=== PATIENT | female | born 1980 | race Caucasian/White ===

== ENCOUNTER → 2016-06-23 | Outpatient (CLI) | payer OTHER ==
[~2016-06-23] MED LIST: ALBU17IN INH; ALBU17IN2 INH; AMBI10TA PO; APAP325T PO; ASPI81TA85 PO; BACL10TA2 PO; CLON1TAB PO; CYCL10TA PO; DULO30CA PO; GABA-283 PO; GABA300C3 PO; GABA600T PO; HYDR-3716 PO; HYDR-4274 PO; HYDR1TAB97 PO; HYDR25T PO; IBUP60TA PO; LAMI1TAB7 PO; LATU20TA PO; NAPR500T2 PO; NEUR300C PO; NORT25CA2 PO; RIZA10TA2 PO; ROBA750T4 PO; SERT-138 PO; SING10TA32 PO; SUMA50TA2 PO; TOPA25TA10 PO; TRAM50TA2 PO; TRAZ50TA4 PO; ULTR50TA PO; VICO5TAB16 PO; ZANA4TAB PO; ZOLO50TA PO
--- NOTE | 2016-06-23 14:25 | REP ---
BILATERAL MAMMOGRAM WITH DIAGNOSTIC MAMMOGRAM OF THE LEFT BREAST AND LEFT BREAST ULTRASOUND: Bilateral mammography performed in the MLO and CC projections. There are no prior studies. Reportedly, there is a palpable abnormality in the upper outer quadrant of the left breast. That area is marked on the skin with a triangular marker. Breast parenchyma is predominately fatty replaced. There is no evidence of mass. No clustered microcalcifications are seen. Real-time sonographic evaluation of the upper outer quadrant of the left breast is performed at the site of the reported palpable abnormality and demonstrates no cystic or solid mass. IMPRESSION: ACR 2 benign. No mass or clustered microcalcifications. There is no mammographic or sonographic evidence of a mass at the site of the reported palpable abnormality in the upper outer quadrant of the left breast. A negative mammogram and ultrasound should not deter biopsy if there is a clinically suspicious palpable mass present. Clinical correlation and followup recommended. BI-RADS/ACR category 2 mammogram. Benign finding(s). Routine annual screening mammography (for women over age 40). This mammogram was interpreted with the aid of an FDA-approved computer-aided detection system. A. Negative x-ray reports should not delay biopsy if a dominant or clinically suspicious mass is present. B. Four to eight percent of cancers are not identified by x-ray. C. Adenosis and dense breasts may obscure an underlying neoplasm. The patient states she/he had a clinical breast exam in May 2016. The patient letter being requested is M2. Signed by Simeon Cee MD 06/23/2016 05:22 P
== END ==
LOC: M RAD 12:09
PROVIDERS: ATTEND Physician Assistant Medical
DX: R91.8 Other nonspecific abnormal finding of lung field (principal)

== ENCOUNTER 2016-06-25 10:32 | Emergency (ER) | payer OTHER ==
[2016-06-25] MEDS ORDERED: IBUPROFEN 800 MG TAB As Ordered ONE (10:58)
--- NOTE | 2016-06-25 12:22 | REP ---
LUMBOSACRAL SPINE: Five views of the lumbosacral spine are performed. There is no compression fracture or malalignment. There is no spondylolysis or spondylolisthesis. There is mild spurring at L1 and L2 with mild disc space narrowing and subchondral sclerosis at that level. There is mild narrowing and sclerosis at L5-S1. There is sclerosis at the posterior facets. The posterior elements are intact. IMPRESSION: Mild degenerative changes without evidence of acute fracture or dislocation. Signed by Simeon Cee MD 06/25/2016 01:30 P
--- NOTE | 2016-06-25 12:22 | REP ---
PELVIS AND RIGHT HIP: AP view of the pelvis and AP and frogleg views of the right hip are performed. There is no evidence of acute fracture or dislocation. There are mild bilateral degenerative changes at the hip joints with mild joint space narrowing, subchondral sclerosis and spurring bilaterally. IMPRESSION: Mild degenerative changes. No fracture or dislocation. Signed by Simeon Cee MD 06/25/2016 01:30 P
--- NOTE | 2016-06-25 12:31 | EDDOCDS ---
Physician Documentation [facility] Name: Janna Martinez Age: 35 yrs Sex: Female : 1980 Arrival Date: 06/25/2016 Time: 10:32 Bed Private MD: Radha Pendleton C Disposition: 06/25/16 12:15 Discharged to Home/Self Care. Impression: Fall due to ice and snow, Pain in right hip, Low back pain - CHRONIC. - Condition is Stable. - Discharge Instructions: Back Pain, Adult, Musculoskeletal Pain. - Prescriptions for Naprosyn 500 mg Oral Tablet - take 1 tablet by ORAL route every 12 hours As needed take with food; 30 tablet. - Medication Reconciliation, Local Pharmacy Hours form. - Follow up: Emergency Department; When: As needed; Reason: Worsening of conditions. Follow up: Private Physician; When: 2 - 3 days; Reason: Wound/Symptom Recheck, Recheck today's complaints, Continuance of care. - Problem is new. - Symptoms are unchanged. - Notes: THERE WAS NO FRACTURE ON YOUR XRAYS TODAY. PLEASE FOLLOW UP WITH YOUR PRIMARY CARE PROVIDER IN THE NEXT FEW DAYS TO RECHECK YOUR SYMPTOMS. Historical: - Allergies: a migraine medicine that was given IV; Bees (Anaphylaxis); mangos (throat closes); SULFA (SULFONAMIDES) (Rash); - Home Meds: 1. albuterol sulfate 90 mcg/actuation Inhl HFAA 2 puffs every 4 hours as needed (Last dose: 06/24/2016 00:00) 2. Atarax Oral 25 mg nightly (Last dose: 06/25/2016 07:00) 3. baclofen 10 mg Oral tab 1 tab 3 times per day (Last dose: 06/25/2016 07:00) 4. hydrocodone-acetaminophen 7.5-325 mg Oral tab 1 tab every 6 hours as needed (Last dose: 06/24/2016 00:00) 5. nortriptyline 25 mg Oral cap nightly (Last dose: 06/24/2016 08:00) 6. gabapentin 900mg morning and afternoon and 1200 mg at bedtime Oral tab 3 tabs three times a day (Last dose: 06/24/2016 20:00) 7. Zoloft 200 mg Oral tab once daily (Last dose: 06/24/2016 20:00) 8. clonazepam 1 mg Oral tab 1 tab 2 times per day (Last dose: 06/24/2016 08:00) - PMHx: Anxiety; Asthma; Bipolar disorder; Chronic Back pain; manic depression; - PSHx: Tonsillectomy; Adenoidectomy; uvula surgery; Tubal ligation; Hysterectomy; urethrea stents; Knee surgery- Right; Carpal Tunnel Repair- Right; - Social history: Smoking status: Patient states was never smoker of tobacco. No barriers to communication noted, Speaks appropriately for age. - Family history: Not pertinent. - : The pt / caregiver states he / she is not on anticoagulants. Home medication list is obtained from the patient. - Exposure Risk Screening:: None identified. PASTORAL COUNSELOR: 06/25 10:39 LMP N/A - Hysterectomy ml6 Vital Signs: 10:33 BP 135 / 82; Pulse 66; Resp 18; Temp 98.4; Pulse Ox 97% ; Weight 127.01 kg / 280.01 elp lbs; Height 5 ft. 6 in. (167.64 cm); Pain 9/10; 12:26 BP 146 / 86; Pulse 76; Resp 18; Pulse Ox 97% on R/A; Pain 9/10; jb5 10:33 Body Mass Index 45.19 (127.01 kg, 167.64 cm) elp MDM: 10:52 Ibuprofen 800 mg PO once ordered. dt4 10:53 Spine. Lumbosacral, Complete Ordered. EDMS 10:53 Hip,AP,LAT to include Pelvis Ordered. EDMS 10:57 Financial registration complete. pm4 11:00 [facility] Payment Agreement was scanned into [employer] and attached to record. pm4 Administered Medications: 11:00 Drug: Ibuprofen 800 mg [ibuprofen 800 mg tablet (1 tabs)] Route: PO; ml6 12:28 Follow up: Response: No significant change. pml Signatures: Dispatcher [employer] EDMS Jamal Hagan RN RN ml6 Kendra Saini RN RN pml Niki Zacarias, ISACC PAJerson dt4 Remington Raines, Reg Reg pm4 The chart was reviewed and I authenticate all verbal orders and agree with the evaluation and treatment provided.Attachments: 11:00 [facility] Payment Agreement pm4 MTDD
--- NOTE | 2016-06-25 12:32 | EDDOCDS ---
Nurse's Notes [facility] Name: Janna Martinez Age: 35 yrs Sex: Female : 1980 Arrival Date: 06/25/2016 Time: 10:32 Bed PR Private MD: Radha Pendleton C Diagnosis: Fall due to ice and snow;Pain in right hip;Low back pain-CHRONIC Presentation: 06/25 10:35 Presenting complaint: Patient states: states that she fell walking out to her vehicle ml6 at 0900, c/o pain in right hip and right lateral neck. Adult Sepsis Screening: The patient does not have new or worsening altered mentation. Patient's respiratory rate is less than 22. Systolic blood pressure is greater than 100. Patient has a qSOFA score of 0- Negative Sepsis Screen. Suicide/Homicide risk assessment- the patient denies having any suicidal and/or homicidal ideations and does not present with any other emotional, behavioral or mental health complaints. Status: Patient is not a technical services assistant or dependent. Transition of care: patient was not received from another setting of care. 10:35 Acuity: TRACEY Level 4 ml6 10:35 Method Of Arrival: Walkin/Carried/Asstd ml6 Triage Assessment: 10:38 General: Appears in no apparent distress, Behavior is appropriate for age, cooperative. ml6 Pain: Location: right leg and neck Pain currently is 6 out of 10 on a pain scale. Pain does not radiate. Quality of pain is described as aching, Pain began 2 hours ago Is continuous Alleviated by nothing. Aggravated by increased activity. HIV screening NA for this visit Offered previously. Neurological: No deficits noted. Cardiovascular: No deficits noted. Musculoskeletal: Circulation, motion, and sensation intact Capillary refill < 3 seconds is brisk in bilateral fingers toes Range of motion intact in all extremities. No deformity noted Swelling absent Signs and Symptoms of Compartment Syndrome: no signs of compartment syndrome. PASTRY DECORATOR: 10:39 LMP N/A - Hysterectomy ml6 Historical: - Allergies: a migraine medicine that was given IV; Bees (Anaphylaxis); mangos (throat closes); SULFA (SULFONAMIDES) (Rash); - Home Meds: 1. albuterol sulfate 90 mcg/actuation Inhl HFAA 2 puffs every 4 hours as needed (Last dose: 06/24/2016 00:00) 2. Atarax Oral 25 mg nightly (Last dose: 06/25/2016 07:00) 3. baclofen 10 mg Oral tab 1 tab 3 times per day (Last dose: 06/25/2016 07:00) 4. hydrocodone-acetaminophen 7.5-325 mg Oral tab 1 tab every 6 hours as needed (Last dose: 06/24/2016 00:00) 5. nortriptyline 25 mg Oral cap nightly (Last dose: 06/24/2016 08:00) 6. gabapentin 900mg morning and afternoon and 1200 mg at bedtime Oral tab 3 tabs three times a day (Last dose: 06/24/2016 20:00) 7. Zoloft 200 mg Oral tab once daily (Last dose: 06/24/2016 20:00) 8. clonazepam 1 mg Oral tab 1 tab 2 times per day (Last dose: 06/24/2016 08:00) - PMHx: Anxiety; Asthma; Bipolar disorder; Chronic Back pain; manic depression; - PSHx: Tonsillectomy; Adenoidectomy; uvula surgery; Tubal ligation; Hysterectomy; urethrea stents; Knee surgery- Right; Carpal Tunnel Repair- Right; - Social history: Smoking status: Patient states was never smoker of tobacco. No barriers to communication noted, Speaks appropriately for age. - Family history: Not pertinent. - : The pt / caregiver states he / she is not on anticoagulants. Home medication list is obtained from the patient. - Exposure Risk Screening:: None identified. Screenin:43 Infection Control. [facility] 12:27 Screening information is obtained from the patient. Fall risk: At risk due to prior pml history of falls. Assistance ADL's: requires no assistance with activities of daily living. Abuse/DV Screen: The patient / caregiver reports he/she is: not in a situation that causes fear, pain or injury. Nutritional screening: No deficits noted. Advance Directives: Currently, there is no health care proxy. home support is adequate. Assessment: 12:27 General: Appears in no apparent distress, Behavior is appropriate for age, cooperative. pml Pain: Location: back Pain currently is 9 out of 10 on a pain scale. Neurological: Level of Consciousness is awake, alert, Oriented to person, place, time. Cardiovascular: Capillary refill < 3 seconds. Respiratory: Airway is patent Respiratory effort is even, unlabored. GI: Abdomen is non- distended. Derm: Skin is pink, warm & dry. Musculoskeletal: Circulation, motion, and sensation intact Capillary refill < 3 seconds Range of motion intact in all extremities. Injury Description: pt fell from standing. Vital Signs: 10:33 BP 135 / 82; Pulse 66; Resp 18; Temp 98.4; Pulse Ox 97% ; Weight 127.01 kg; Height 5 elp ft. 6 in. (167.64 cm); Pain 9/10; 12:26 BP 146 / 86; Pulse 76; Resp 18; Pulse Ox 97% on R/A; Pain 9/10; jb5 10:33 Body Mass Index 45.19 (127.01 kg, 167.64 cm) [facility] Vitals: 10:33 Log In Time: June 25, 2016 at 10:30. elp ED Course: 10:33 Patient visited by Frances Hood PCA. elp 10:33 Radha Pendleton is Private Physician. elp 10:33 Patient moved to Waiting elp 10:34 Patient visited by Frances Hood PCA. elp 10:34 Patient moved to Pre RCE elp 10:36 Triage Initiated ml6 10:39 Patient moved to Triage 3 ml6 10:41 [facility] dt4 10:41 Kaiser Obrien MD is Attending Physician. dt4 10:41 Patient visited by Niki Zacarias PA-C. dt4 11:00 [facility] Payment Agreement was scanned into [employer] and attached to record. pm4 11:00 Patient moved to TR1 ml6 12:23 Patient moved to PR1 / 25 ml6 12:26 Patient visited by Ginna Ashton PCA. jb5 12:27 The patient / caregiver is instructed regarding the plan of care and ED course. Patient pml has correct armband on for positive identification. Placed in gown. Bed in low position. Call light in reach. Side rails up X2. 12:27 No IV's were initiated during this patient's visit. No procedures done that require pml assistance. Administered Medications: 11:00 Drug: Ibuprofen 800 mg [ibuprofen 800 mg tablet (1 tabs)] Route: PO; ml6 12:28 Follow up: Response: No significant change. pml Order Results: There are currently no results for this order. Outcome: 12:15 Discharge ordered by Provider. dt4 12:27 Discharge Assessment: Patient awake, alert and oriented x 3. No cognitive and/or pml functional deficits noted. Patient verbalized understanding of disposition instructions. patient administered narcotics - no. The following High Risk Discharge criteria are identified: None. Discharged to home ambulatory. Condition: good Condition: stable. Discharge instructions given to patient, Instructed on discharge instructions, follow up and referral plans. medication usage, Demonstrated understanding of instructions, medications, Pt was receptive of discharge instructions/ teaching. Prescriptions given X 1. No special radiology studies were completed. Property sent home with patient. 12:30 Patient left the ED. pml Signatures: Ginna Ashton, PROCUREMENT COORDINATOR PROCUREMENT COORDINATOR jb5 Jamal Hagan, RN RN ml6 Kendra Saini,RN RN pml Frances Hood, PROCUREMENT COORDINATOR PROCUREMENT COORDINATOR denisep Niki Zacarias, PA-Sandeep PA-C dt4 Remington Raines, Reg Reg pm4 MTDD
--- NOTE | 2016-06-27 13:32 | EDDOCDS ---
Nurse's Notes [facility] Name: Janna Martinez Age: 35 yrs Sex: Female : 1980 Arrival Date: 06/25/2016 Time: 10:32 Bed PR Private MD: Radha Penldeton C Diagnosis: Fall due to ice and snow;Pain in right hip;Low back pain-CHRONIC Presentation: 06/25 10:35 Presenting complaint: Patient states: states that she fell walking out to her vehicle ml6 at 0900, c/o pain in right hip and right lateral neck. Adult Sepsis Screening: The patient does not have new or worsening altered mentation. Patient's respiratory rate is less than 22. Systolic blood pressure is greater than 100. Patient has a qSOFA score of 0- Negative Sepsis Screen. Suicide/Homicide risk assessment- the patient denies having any suicidal and/or homicidal ideations and does not present with any other emotional, behavioral or mental health complaints. Status: Patient is not a director of maternity services or dependent. Transition of care: patient was not received from another setting of care. 10:35 Acuity: TRACEY Level 4 ml6 10:35 Method Of Arrival: Walkin/Carried/Asstd ml6 Triage Assessment: 10:38 General: Appears in no apparent distress, Behavior is appropriate for age, cooperative. ml6 Pain: Location: right leg and neck Pain currently is 6 out of 10 on a pain scale. Pain does not radiate. Quality of pain is described as aching, Pain began 2 hours ago Is continuous Alleviated by nothing. Aggravated by increased activity. HIV screening NA for this visit Offered previously. Neurological: No deficits noted. Cardiovascular: No deficits noted. Musculoskeletal: Circulation, motion, and sensation intact Capillary refill < 3 seconds is brisk in bilateral fingers toes Range of motion intact in all extremities. No deformity noted Swelling absent Signs and Symptoms of Compartment Syndrome: no signs of compartment syndrome. 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 albuterol sulfate 90 mcg/actuation Inhl HFAA 2 puffs every 4 hours as needed (Last dose: 06/24/2016 00:00) 2. Atarax Oral 25 mg nightly (Last dose: 06/25/2016 07:00) 3. baclofen 10 mg Oral tab 1 tab 3 times per day (Last dose: 06/25/2016 07:00) 4. hydrocodone-acetaminophen 7.5-325 mg Oral tab 1 tab every 6 hours as needed (Last dose: 06/24/2016 00:00) 5. nortriptyline 25 mg Oral cap nightly (Last dose: 06/24/2016 08:00) 6. gabapentin 900mg morning and afternoon and 1200 mg at bedtime Oral tab 3 tabs three times a day (Last dose: 06/24/2016 20:00) 7. Zoloft 200 mg Oral tab once daily (Last dose: 06/24/2016 20:00) 8. clonazepam 1 mg Oral tab 1 tab 2 times per day (Last dose: 06/24/2016 08:00) - PMHx: Anxiety; Asthma; Bipolar disorder; Chronic Back pain; manic depression; - PSHx: Tonsillectomy; Adenoidectomy; uvula surgery; Tubal ligation; Hysterectomy; urethrea stents; Knee surgery- Right; Carpal Tunnel Repair- Right; - Social history: Smoking status: Patient states was never smoker of tobacco. No barriers to communication noted, Speaks appropriately for age. - Family history: Not pertinent. - : The pt / caregiver states he / she is not on anticoagulants. Home medication list is obtained from the patient. - Exposure Risk Screening:: None identified. Screenin:43 Infection Control. [facility] 12:27 Screening information is obtained from the patient. Fall risk: At risk due to prior pml history of falls. Assistance ADL's: requires no assistance with activities of daily living. Abuse/DV Screen: The patient / caregiver reports he/she is: not in a situation that causes fear, pain or injury. Nutritional screening: No deficits noted. Advance Directives: Currently, there is no health care proxy. home support is adequate. Assessment: 12:27 General: Appears in no apparent distress, Behavior is appropriate for age, cooperative. pml Pain: Location: back Pain currently is 9 out of 10 on a pain scale. Neurological: Level of Consciousness is awake, alert, Oriented to person, place, time. Cardiovascular: Capillary refill < 3 seconds. Respiratory: Airway is patent Respiratory effort is even, unlabored. GI: Abdomen is non- distended. Derm: Skin is pink, warm & dry. Musculoskeletal: Circulation, motion, and sensation intact Capillary refill < 3 seconds Range of motion intact in all extremities. Injury Description: pt fell from standing. Vital Signs: 10:33 BP 135 / 82; Pulse 66; Resp 18; Temp 98.4; Pulse Ox 97% ; Weight 127.01 kg; Height 5 elp ft. 6 in. (167.64 cm); Pain 9/10; 12:26 BP 146 / 86; Pulse 76; Resp 18; Pulse Ox 97% on R/A; Pain 9/10; jb5 10:33 Body Mass Index 45.19 (127.01 kg, 167.64 cm) [facility] Vitals: 10:33 Log In Time: June 25, 2016 at 10:30. elp ED Course: 10:33 Patient visited by Frances Hood PCA. elp 10:33 Radha Pendleton is Private Physician. elp 10:33 Patient moved to Waiting elp 10:34 Patient visited by Frances Hood PCA. elp 10:34 Patient moved to Pre RCE elp 10:36 Triage Initiated ml6 10:39 Patient moved to Triage 3 ml6 10:41 Niki [facility]acarias [facility]-C [facility] dt4 10:41 Kaiser Obrien MD is Attending Physician. dt4 10:41 Patient visited by Niki Zacarias PA-C. dt4 11:00 [facility] Payment Agreement was scanned into [employer] and attached to record. pm4 11:00 Patient moved to TR1 ml6 12:23 Patient moved to PR1 / 25 ml6 12:26 Patient visited by Ginna Ashton PCA. jb5 12:27 The patient / caregiver is instructed regarding the plan of care and ED course. Patient pml has correct armband on for positive identification. Placed in gown. Bed in low position. Call light in reach. Side rails up X2. 12:27 No IV's were initiated during this patient's visit. No procedures done that require pml assistance. 12:36 Spine. Lumbosacral, Complete Returned. EDMS 12:36 Hip,AP,LAT to include Pelvis Returned. EDMS 06/26 10:29 T-Sheet-- Draft Copy was scanned into [employer] and attached to record. gb 10:30 Radiology Report was scanned into [employer] and attached to record. gb Administered Medications: 06/25 11:00 Drug: Ibuprofen 800 mg [ibuprofen 800 mg tablet (1 tabs)] Route: PO; ml6 12:28 Follow up: Response: No significant change. pml Order Results: Radiology Order: Spine. Lumbosacral, Complete Test: Spine. Lumbosacral, Complete REASON FOR EXAMINATION: low back pain after fall; LUMBOSACRAL SPINE:; ; Five views of the lumbosacral spine are performed.; ; There is no compression fracture or malalignment. There is no spondylolysis or; spondylolisthesis. There is mild spurring at L1 and L2 with mild disc space; narrowing and subchondral sclerosis at that level. There is mild narrowing and; sclerosis at L5-S1. There is sclerosis at the posterior facets. The posterior; elements are intact.; ; IMPRESSION:; ; Mild degenerative changes without evidence of acute fracture or dislocation.; ; ; Signed by; Simeon Cee MD 06/25/2016 01:30 P; Radiology Order: Hip,AP,LAT to include Pelvis Test: Hip,AP,LAT to include Pelvis REASON FOR EXAMINATION: right hip pain after fall; PELVIS AND RIGHT HIP:; ; AP view of the pelvis and AP and frogleg views of the right hip are performed.; There is no evidence of acute fracture or dislocation. There are mild bilateral; degenerative changes at the hip joints with mild joint space narrowing,; subchondral sclerosis and spurring bilaterally.; ; IMPRESSION:; ; Mild degenerative changes. No fracture or dislocation.; ; ; Signed by; Simeon Cee MD 06/25/2016 01:30 P; Outcome: 12:15 Discharge ordered by Provider. dt4 12:27 Discharge Assessment: Patient awake, alert and oriented x 3. No cognitive and/or pml functional deficits noted. Patient verbalized understanding of disposition instructions. patient administered narcotics - no. The following High Risk Discharge criteria are identified: None. Discharged to home ambulatory. Condition: good Condition: stable. Discharge instructions given to patient, Instructed on discharge instructions, follow up and referral plans. medication usage, Demonstrated understanding of instructions, medications, Pt was receptive of discharge instructions/ teaching. Prescriptions given X 1. No special radiology studies were completed. Property sent home with patient. 12:30 Patient left the ED. pml Signatures: Dispatcher [employer] EDMS Tarah Milan, Reg Reg gb Ginna Ashton, ENVIRONMENTAL SERVICE AIDE ENVIRONMENTAL SERVICE AIDE jb5 Jamal Hagan, RN RN ml6 Kendra Saini RN RN pml Hanycathy, Frances, ENVIRONMENTAL SERVICE AIDE ENVIRONMENTAL SERVICE AIDE elp Niki Zacarias, PA-Sandeep PA-C dt4 Remington Raines, Reg Reg pm4 Chart Complete MTDD
--- NOTE | 2016-06-27 13:32 | EDDOCDS ---
Physician Documentation [facility] Name: Janna Martinez Age: 35 yrs Sex: Female : 1980 Arrival Date: 06/25/2016 Time: 10:32 Bed Private MD: Radha Pendleton C Disposition: 06/25/16 12:15 Discharged to Home/Self Care. Impression: Fall due to ice and snow, Pain in right hip, Low back pain - CHRONIC. - Condition is Stable. - Discharge Instructions: Back Pain, Adult, Musculoskeletal Pain. - Prescriptions for Naprosyn 500 mg Oral Tablet - take 1 tablet by ORAL route every 12 hours As needed take with food; 30 tablet. - Medication Reconciliation, Local Pharmacy Hours form. - Follow up: Emergency Department; When: As needed; Reason: Worsening of conditions. Follow up: Private Physician; When: 2 - 3 days; Reason: Wound/Symptom Recheck, Recheck today's complaints, Continuance of care. - Problem is new. - Symptoms are unchanged. - Notes: THERE WAS NO FRACTURE ON YOUR XRAYS TODAY. PLEASE FOLLOW UP WITH YOUR PRIMARY CARE PROVIDER IN THE NEXT FEW DAYS TO RECHECK YOUR SYMPTOMS. Historical: - Allergies: a migraine medicine that was given IV; Bees (Anaphylaxis); mangos (throat closes); SULFA (SULFONAMIDES) (Rash); - Home Meds: 1. albuterol sulfate 90 mcg/actuation Inhl HFAA 2 puffs every 4 hours as needed (Last dose: 06/24/2016 00:00) 2. Atarax Oral 25 mg nightly (Last dose: 06/25/2016 07:00) 3. baclofen 10 mg Oral tab 1 tab 3 times per day (Last dose: 06/25/2016 07:00) 4. hydrocodone-acetaminophen 7.5-325 mg Oral tab 1 tab every 6 hours as needed (Last dose: 06/24/2016 00:00) 5. nortriptyline 25 mg Oral cap nightly (Last dose: 06/24/2016 08:00) 6. gabapentin 900mg morning and afternoon and 1200 mg at bedtime Oral tab 3 tabs three times a day (Last dose: 06/24/2016 20:00) 7. Zoloft 200 mg Oral tab once daily (Last dose: 06/24/2016 20:00) 8. clonazepam 1 mg Oral tab 1 tab 2 times per day (Last dose: 06/24/2016 08:00) - PMHx: Anxiety; Asthma; Bipolar disorder; Chronic Back pain; manic depression; - PSHx: Tonsillectomy; Adenoidectomy; uvula surgery; Tubal ligation; Hysterectomy; urethrea stents; Knee surgery- Right; Carpal Tunnel Repair- Right; - Social history: Smoking status: Patient states was never smoker of tobacco. No barriers to communication noted, Speaks appropriately for age. - Family history: Not pertinent. - : The pt / caregiver states he / she is not on anticoagulants. Home medication list is obtained from the patient. - Exposure Risk Screening:: None identified. 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 6 in. (167.64 cm); Pain 9/10; 12:26 BP 146 / 86; Pulse 76; Resp 18; Pulse Ox 97% on R/A; Pain 9/10; jb5 10:33 Body Mass Index 45.19 (127.01 kg, 167.64 cm) elp MDM: 10:52 Ibuprofen 800 mg PO once ordered. dt4 10:53 Spine. Lumbosacral, Complete Ordered. EDMS 10:53 Hip,AP,LAT to include Pelvis Ordered. EDMS 10:57 Financial registration complete. pm4 11:00 [facility] Payment Agreement was scanned into [employer] and attached to record. pm4 06/26 10:29 T-Sheet-- Draft Copy was scanned into [employer] and attached to record. gb 10:30 Radiology Report was scanned into [employer] and attached to record. gb Administered Medications: 06/25 11:00 Drug: Ibuprofen 800 mg [ibuprofen 800 mg tablet (1 tabs)] Route: PO; ml6 12:28 Follow up: Response: No significant change. boo Signatures: Dispatcher [employer] EDMS Tarah Milan, Reg Reg gb Jamal Hagan RN RN ml6 Kendra Saini RN RN pml Niki Zacarias PA-C PA-C dt4 Remington Raines, Reg Reg pm4 The chart was reviewed and I authenticate all verbal orders and agree with the evaluation and treatment provided.Attachments: 11:00 [facility] Payment Agreement pm4 06/26 10:29 T-Sheet-- Draft Copy gb Chart Complete MTDD
--- NOTE | 2016-06-27 13:32 | EDDOCDS ---
Physician Documentation [facility] Name: Janna Martinez Age: 35 yrs Sex: Female : 1980 Arrival Date: 06/25/2016 Time: 10:32 Bed Private MD: Radha Pendleton C Disposition: 06/25/16 12:15 Discharged to Home/Self Care. Impression: Fall due to ice and snow, Pain in right hip, Low back pain - CHRONIC. - Condition is Stable. - Discharge Instructions: Back Pain, Adult, Musculoskeletal Pain. - Prescriptions for Naprosyn 500 mg Oral Tablet - take 1 tablet by ORAL route every 12 hours As needed take with food; 30 tablet. - Medication Reconciliation, Local Pharmacy Hours form. - Follow up: Emergency Department; When: As needed; Reason: Worsening of conditions. Follow up: Private Physician; When: 2 - 3 days; Reason: Wound/Symptom Recheck, Recheck today's complaints, Continuance of care. - Problem is new. - Symptoms are unchanged. - Notes: THERE WAS NO FRACTURE ON YOUR XRAYS TODAY. PLEASE FOLLOW UP WITH YOUR PRIMARY CARE PROVIDER IN THE NEXT FEW DAYS TO RECHECK YOUR SYMPTOMS. Historical: - Allergies: a migraine medicine that was given IV; Bees (Anaphylaxis); mangos (throat closes); SULFA (SULFONAMIDES) (Rash); - Home Meds: 1. albuterol sulfate 90 mcg/actuation Inhl HFAA 2 puffs every 4 hours as needed (Last dose: 06/24/2016 00:00) 2. Atarax Oral 25 mg nightly (Last dose: 06/25/2016 07:00) 3. baclofen 10 mg Oral tab 1 tab 3 times per day (Last dose: 06/25/2016 07:00) 4. hydrocodone-acetaminophen 7.5-325 mg Oral tab 1 tab every 6 hours as needed (Last dose: 06/24/2016 00:00) 5. nortriptyline 25 mg Oral cap nightly (Last dose: 06/24/2016 08:00) 6. gabapentin 900mg morning and afternoon and 1200 mg at bedtime Oral tab 3 tabs three times a day (Last dose: 06/24/2016 20:00) 7. Zoloft 200 mg Oral tab once daily (Last dose: 06/24/2016 20:00) 8. clonazepam 1 mg Oral tab 1 tab 2 times per day (Last dose: 06/24/2016 08:00) - PMHx: Anxiety; Asthma; Bipolar disorder; Chronic Back pain; manic depression; - PSHx: Tonsillectomy; Adenoidectomy; uvula surgery; Tubal ligation; Hysterectomy; urethrea stents; Knee surgery- Right; Carpal Tunnel Repair- Right; - Social history: Smoking status: Patient states was never smoker of tobacco. No barriers to communication noted, Speaks appropriately for age. - Family history: Not pertinent. - : The pt / caregiver states he / she is not on anticoagulants. Home medication list is obtained from the patient. - Exposure Risk Screening:: None identified. 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 6 in. (167.64 cm); Pain 9/10; 12:26 BP 146 / 86; Pulse 76; Resp 18; Pulse Ox 97% on R/A; Pain 9/10; jb5 10:33 Body Mass Index 45.19 (127.01 kg, 167.64 cm) elp MDM: 10:52 Ibuprofen 800 mg PO once ordered. dt4 10:53 Spine. Lumbosacral, Complete Ordered. EDMS 10:53 Hip,AP,LAT to include Pelvis Ordered. EDMS 10:57 Financial registration complete. pm4 11:00 [facility] Payment Agreement was scanned into [employer] and attached to record. pm4 06/26 10:29 T-Sheet-- Draft Copy was scanned into [employer] and attached to record. gb 10:30 Radiology Report was scanned into [employer] and attached to record. gb Administered Medications: 06/25 11:00 Drug: Ibuprofen 800 mg [ibuprofen 800 mg tablet (1 tabs)] Route: PO; ml6 12:28 Follow up: Response: No significant change. boo Signatures: Dispatcher [employer] EDMS Tarah Milan, Reg Reg gb Jamal Hagan RN RN ml6 Kendra Saini RN RN pml Niki Zacarias PA-C PA-C dt4 Remington Raines, Reg Reg pm4 The chart was reviewed and I authenticate all verbal orders and agree with the evaluation and treatment provided.Attachments: 11:00 [facility] Payment Agreement pm4 06/26 10:29 T-Sheet-- Draft Copy gb Chart Complete MTDD
== END 2016-06-25 12:30 | disposition home or self-care (01) ==
LOC: M ED 10:32
DX: M25.551 Pain in right hip (principal); G89.29 Other chronic pain; M54.5 Low back pain; W00.9XXA Unspecified fall due to ice and snow, initial encounter; Y92.9 Unspecified place or not applicable; Y93.01 Activity, walking, marching and hiking; Y99.9 Unspecified external cause status; F41.9 Anxiety disorder, unspecified; J45.909 Unspecified asthma, uncomplicated; F33.9 Major depressive disorder, recurrent, unspecified; Z79.899 Other long term (current) drug therapy; Z88.8 Allergy status to other drugs, medicaments and biological substances; Z91.030 Bee allergy status; Z91.018 Allergy to other foods; Z88.2 Allergy status to sulfonamides

== ENCOUNTER → 2016-07-24 | Outpatient (CLI) | payer OTHER ==
[~2016-07-24] MED LIST changes: +HYDR-3713 PO; -HYDR1TAB97 PO
--- NOTE | 2016-07-26 09:31 | REP ---
MRI LUMBAR SPINE WITHOUT CONTRAST: HISTORY: Back pain. COMPARISON: 12/18/2015. Decreased signal intensity on T2-weighted images is present in the L1-2, L2-3, L4-5 and L5-S1 intervertebral discs. The discs are decreased in height. These findings are consistent with disc degeneration. There is no disc bulge or herniation at the L1-2 and L2-3 levels. The nerves exit the neural foramina without compression. A diffuse disc bulge is present at the L3-4 level. There is minimal compression of the thecal sac. The L3 nerves exit the neural foramina without compression. A diffuse disc bulge is present at the L4-5 level. There is minimal compression of the thecal sac. There is hypertrophy of the posterior articulating facets. The L4 nerves exit the neural foramina without compression. A diffuse disc bulge is present at the L5-S1 level. This abuts the thecal sac and S1 nerves. The L5 nerves exit the neural foramina without compression. The conus medullaris is normal in appearance terminating at the level of the L1-2 intervertebral disc. Normal signal intensity is present in the lumbar vertebral bodies. IMPRESSION: 1. Diffuse disc bulges at the L3-4 and L4-5 levels with minimal thecal sac compression. 2. Diffuse disc bulge at the L5-S1 level. This abuts the thecal sac and S1 nerves. There is no significant change compared to the previous study. Signed by Oscar Ocampo MD 07/26/2016 09:51 A
== END ==
LOC: M RAD 09:56
PROVIDERS: ATTEND Physician Assistant Medical
DX: M54.5 Low back pain (principal)

== ENCOUNTER 2016-09-30 10:45 | Emergency (ER) | payer OTHER ==
[~2016-09-30 10:45] MED LIST changes: +GABA-282 PO; -GABA300C3 PO
--- NOTE | 2016-09-30 12:18 | REP ---
Right ankle four views: Comparison is 04/15/2014. There is no fracture or dislocation. The mortise is symmetric. There are no unusual calcifications. There are calcaneal plantar and Achilles spurs. 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 Calcaneal spurs. Accessory navicular ossicle. No fracture or dislocation. Signed by Simeon Grey MD 09/30/2016 12:10 P
== END 2016-10-01 05:10 | disposition home or self-care (01) ==
LOC: M ED 10:45
DX: S93.401A Sprain of unspecified ligament of right ankle, initial encounter (principal); X50.9XXA Other and unspecified overexertion or strenuous movements or postures, initial encounter; Y92.89 Other specified places as the place of occurrence of the external cause; Y93.89 Activity, other specified; Y99.8 Other external cause status; M77.31 Calcaneal spur, right foot; Q74.2 Other congenital malformations of lower limb(s), including pelvic girdle; Z79.899 Other long term (current) drug therapy; Z88.8 Allergy status to other drugs, medicaments and biological substances; Z88.2 Allergy status to sulfonamides; Z91.030 Bee allergy status

== ENCOUNTER 2016-10-13 10:26 | Emergency (ER) | payer OTHER ==
[~2016-10-13] VITALS: Ht 167.6 cm; Wt 131.5 kg
--- NOTE | 2016-10-13 11:21 | REP ---
CT Head without contrast HISTORY: Fall COMPARISON: 07/21/2015 There is no intraparenchymal hemorrhage, acute infarct, mass or midline shift. The ventricular system is normal in appearance. There is no extra cerebral collection. There is no fracture. The visualized sinuses are clear. IMPRESSION: There is no intracranial lesion. Signed by Oscar Ocampo MD 10/13/2016 11:13 A
[2016-10-13] MEDS ORDERED: NAPR500T2 PO (12:00)
[2016-10-13 12:15] VITALS: BP 136/80
--- NOTE | 2016-10-13 12:31 | REP ---
RIGHT ELBOW, FOUR VIEWS: HISTORY: Pain. There is no acute fracture or dislocation. The joint space is normal in appearance. A small calcified density is present along the anterior aspect of the proximal ulna. This represents ligamentous or tendon calcification. IMPRESSION: There is no acute fracture or dislocation. Signed by Oscar Ocampo MD 10/13/2016 12:40 P
== END 2016-10-13 12:18 | disposition home or self-care (01) ==
LOC: M ED 10:59
DX: S50.01XA Contusion of right elbow, initial encounter (principal); S06.0X9A Concussion with loss of consciousness of unspecified duration, initial encounter; W01.10XA Fall on same level from slipping, tripping and stumbling with subsequent striking against unspecified object, initial encounter; Y92.099 Unspecified place in other non-institutional residence as the place of occurrence of the external cause; Y93.9 Activity, unspecified; Y99.9 Unspecified external cause status; J45.909 Unspecified asthma, uncomplicated; F31.9 Bipolar disorder, unspecified; Z79.899 Other long term (current) drug therapy; Z91.030 Bee allergy status; Z88.8 Allergy status to other drugs, medicaments and biological substances; Z88.2 Allergy status to sulfonamides

== ENCOUNTER → 2016-10-19 | Outpatient (CLI) | payer OTHER ==
--- NOTE | 2016-10-20 02:05 | REP ---
Clinical: Spondylosis . Technique: AP, lateral, flexion/extension, bilateral oblique, and open-mouth views. Findings: Alignment and lordosis is maintained. There is no evidence for acute fracture / compression injury or subluxation. No significant degenerative changes are appreciated. Oblique views demonstrate patent neural foramen. Open mouth view demonstrates normal C1-C2 articulation and odontoid process. Impression: Normal cervical spine series. Signed by Kwan Fox MD 10/20/2016 01:56 A
--- NOTE | 2016-10-20 02:21 | REP ---
Clinical: Back pain . Technique: AP, lateral, bilateral oblique, and coned-down views. Findings: Alignment and lordosis is maintained. The vertebral bodies including transverse process and spinous processes are intact and there is no evidence for acute fracture / compression injury or subluxation. No evidence for spondylolysis or spondylolisthesis. Moderate multilevel degenerative changes are appreciated including early anterior spurring and endplate sclerosis. More pronounced degenerative changes at the L5-S1 level include endplate sclerosis with associated disc space narrowing and hypertrophic facet changes. Impression: Multilevel changes most pronounced at the L5-S1 level. Signed by Kwan Fox MD 10/20/2016 02:12 A
== END ==
LOC: M LAB 09:42
PROVIDERS: ATTEND Neurological Surgery
DX: M47.892 Other spondylosis, cervical region (principal)

== ENCOUNTER → 2016-10-19 | Outpatient (CLI) | payer OTHER ==
[2016-10-19 10:24] LABS: BASO % 0.5 % (0.0-1.0); EOS # 0.2 K/mm3 (0.0-0.50); LYMPH # 1.1 K/mm3 (1.5-4.5); LYMPH % 21.4 % (24.0-44.0); MEAN CORPUSCULAR HEMOGLOBIN 31.3 pg (27.0-33.0); MEAN CORPUSCULAR HGB CONC 34.4 g/dl (32.0-36.5); MEAN CORPUSCULAR VOLUME 90.9 fl (80.0-96.0); MONO # 0.3 K/mm3 (0.0-0.8); MONO % 5.4 % (0.0-5.0); NEUTROPHILS # 3.6 K/mm3 (1.8-7.7); NEUTROPHILS % 68.9 % (36.0-66.0); RED CELL DISTRIBUTION WIDTH 12.6 % (11.5-14.5); WHITE BLOOD COUNT 5.2 K/mm3 (4.0-10.0)
[2016-10-19 10:59] LABS: ALBUMIN 4.2 GM/DL (3.2-5.2); ALBUMIN/GLOBULIN RATIO 1.45 (1.00-1.93); ALKALINE PHOSPHATASE 63 U/L (45-117); ALT/SGPT 40 U/L (12-78); ANION GAP 6 MEQ/L (8-16); AST/SGOT 19 U/L (15-37); BILIRUBIN,TOTAL 0.5 MG/DL (0.2-1.0); BLOOD UREA NITROGEN 14 MG/DL (7-18); CALCIUM LEVEL 8.9 MG/DL (8.5-10.1); CARBON DIOXIDE LEVEL 30 MEQ/L (21-32); CHLORIDE LEVEL 106 MEQ/L (98-107); CREATININE FOR GFR 0.73 MG/DL (0.55-1.02); FERRITIN 62 NG/ML (8-252); GLOMERULAR FILTRATION RATE > 60.0 (>60); GLUCOSE, FASTING 93 MG/DL (70-105); POTASSIUM SERUM 3.9 MEQ/L (3.5-5.1); SODIUM LEVEL 142 MEQ/L (136-145); TOTAL PROTEIN 7.1 GM/DL (6.4-8.2)
[2016-10-21 00:07] LABS: Lyme Disease IgG/IgM Antibodie <0.91 ISR (0.00-0.90); Lyme Disease IgM Ab Quantitati <0.80 index (0.00-0.79)
== END ==
LOC: M LAB 09:35
PROVIDERS: ATTEND Physician Assistant Medical
DX: R53.83 Other fatigue (principal)

== ENCOUNTER → 2017-01-04 | Outpatient (CLI) | payer OTHER ==
[~2017-01-04] MED LIST changes: -APAP325T PO; +APAP325T4 PO; +HYDR-3363 PO; -HYDR-4274 PO; -HYDR25T PO; +HYDR50TA70 PO; +IBUP1TAB6 PO; -IBUP60TA PO; -NAPR500T2 PO; +NAPR500T3 PO; +TOPA1TAB PO; -TOPA25TA10 PO; +TRAZ50TA11 PO; -TRAZ50TA4 PO; -ULTR50TA PO; +ULTR50TA8 PO
--- NOTE | 2017-01-04 16:31 | REP ---
RIGHT WRIST, TWO VIEWS: HISTORY: Pain. There is no acute fracture or dislocation. The joint spaces are normal in appearance. IMPRESSION: There is no acute fracture or dislocation. Signed by Oscar Ocampo MD 01/04/2017 04:33 P
== END ==
LOC: M WUC 14:46
PROVIDERS: ATTEND Physician Assistant Medical
DX: M25.539 Pain in unspecified wrist (principal)

== ENCOUNTER → 2017-01-21 | Outpatient (CLI) | payer OTHER ==
--- NOTE | 2017-01-21 10:54 | REP ---
Right knee six views: Comparison is 04/15/2014. Mineralization is normal. There is tricompartment osteoarthritis. This has significantly progressed. There is a small suprapatellar joint effusion, not present previously. There is no fracture or dislocation. No calcifications or foreign bodies. Impression: Progressive tricompartment osteoarthritis. There is a suprapatellar joint effusion. Signed by Simeon Grey MD 01/21/2017 10:44 A
== END ==
LOC: M WUC 09:34
PROVIDERS: ATTEND Physician Assistant
DX: S83.421A Sprain of lateral collateral ligament of right knee, initial encounter (principal); W18.30XA Fall on same level, unspecified, initial encounter; Y92.009 Unspecified place in unspecified non-institutional (private) residence as the place of occurrence of the external cause

== ENCOUNTER → 2017-03-29 | Outpatient (REF) | payer OTHER ==
[2017-04-01 00:08] LABS: BENZODIAZEPINES, URINE SCREEN Negative ng/mL (Cutoff=200); METHADONE, URINE SCREEN Negative ng/mL (Cutoff=300); pH, URINE 6.1 (4.5-8.9)
== END ==
LOC: M LAB REF 11:47
PROVIDERS: ATTEND Physician Assistant Medical
DX: M54.5 Low back pain (principal)

== ENCOUNTER → 2017-05-30 | Outpatient (CLI) | payer OTHER ==
--- NOTE | 2017-05-30 14:19 | REP ---
RIGHT SHOULDER SERIES: Three views. HISTORY: Generalized pain. FINDINGS: The right glenohumeral and acromioclavicular joints are normally aligned. Periarticular soft tissues are unremarkable. No erosive change is seen. IMPRESSION: Negative right shoulder radiographs. Signed by Richard Laboy MD 05/30/2017 03:04 P
== END ==
LOC: M WUC 13:39
PROVIDERS: ATTEND Physician Assistant
DX: M25.519 Pain in unspecified shoulder (principal)

== ENCOUNTER → 2017-06-01 | Outpatient (CLI) | payer OTHER ==
--- NOTE | 2017-06-03 09:25 | SLEEPHOME ---
DATE OF STUDY: 06/01/2017 ORDERED BY: Leslie Berumen NP Diagnostic home sleep testing was performed due to concern for the obstructive sleep apnea syndrome. For testing, a NOX-T3 respiratory monitoring device was used. Continuous record was made of pulse, oxygen saturation, airflow, chest and abdominal strain, and body position. 10 hours and 59 minutes of data were reviewed. Of these, 6 hours and 34 minutes were marked as time in bed. During the interval marked time in bed, there were 86 respiratory events identified of 10 seconds in duration or greater for a respiratory event index of 13.1. The events identified were primarily obstructive. Baseline pulse rate was 84, pulse rate ranged 45 to 147. Baseline saturation was 93%. Lowest oxygen [id number]%. Testing was performed in both the supine and nonsupine positions. IMPRESSION: Abnormal home sleep testing with repetitive respiratory events and oxygen desaturation to 70% with a respiratory event index of 13.1 is consistent with the obstructive sleep apnea syndrome. RECOMMENDATION: The patient should be encouraged to undergo formal sleep evaluation and in-laboratory pressure titration.
== END ==
LOC: M SLEEP HO 10:51
PROVIDERS: ATTEND Nurse Practitioner Adult Health
DX: G47.33 Obstructive sleep apnea (adult) (pediatric) (principal)

== ENCOUNTER 2017-06-30 08:32 | Emergency (ER) | payer OTHER ==
[2017-06-30] MEDS: KETOROLAC 30 MG/ML VIAL (J1885) IV (09:15)
[2017-06-30] MEDS: NS 1,000 ML IV (09:15)
[2017-06-30] MEDS: ONDANSETRON 4MG/2ML VIAL (J2405) IV (09:15)
[2017-06-30 09:37] LABS: KETONE, URINE AUTO RFX NEGATIVE (NEGATIVE); MUCUS, URINE RFX SMALL (NEGATIVE); NITRITE, URINE AUTO RFX NEGATIVE (NEGATIVE); RBC, URINE AUTO RFX 1 /HPF (0-3); SPECIFIC GRAVITY UR AUTO RFX 1.019 (1.002-1.035); SQUAM EPITHELIAL CELL UR AURFX 3 /HPF (0-6)
[2017-06-30 09:38] LABS: BASO % 0.4 % (0.0-1.0); EOS # 0.3 10^3/uL (0.0-0.50); EOS % 4.9 % (0.0-3.0); HEMATOCRIT 41.6 % (36.0-47.0); HEMOGLOBIN 14.4 g/dl (12.0-16.0); IMMATURE GRANULOCYTE % 0.2 % (0-0); LYMPH # 1.7 10^3/uL (1.5-4.5); LYMPH % 30.8 % (24.0-44.0); MEAN CORPUSCULAR HEMOGLOBIN 30.5 pg (27.0-33.0); MEAN CORPUSCULAR HGB CONC 34.6 g/dl (32.0-36.5); MEAN CORPUSCULAR VOLUME 88.1 fl (80.0-96.0); MONO # 0.4 10^3/uL (0.0-0.8); MONO % 6.8 % (0.0-5.0); NEUTROPHILS # 3.2 10^3/uL (1.8-7.7); NEUTROPHILS % 56.9 % (36.0-66.0); PLATELET COUNT, AUTOMATED 171 10^3/uL (150-450); RED BLOOD COUNT 4.72 10^6/uL (4.00-5.40); RED CELL DISTRIBUTION WIDTH 12.6 % (11.5-14.5); WHITE BLOOD COUNT 5.6 10^3/uL (4.0-10.0)
[2017-06-30 09:56] LABS: LEUKOCYTE ESTERASE UR AUTO RFX 1+ (NEGATIVE); WBC, URINE AUTO RFX 15 /HPF (0-3)
[2017-06-30 10:14] LABS: ALBUMIN 3.9 GM/DL (3.2-5.2); ALBUMIN/GLOBULIN RATIO 1.18 (1.00-1.93); ALKALINE PHOSPHATASE 69 U/L (45-117); ALT/SGPT 42 U/L (12-78); AMYLASE 25 U/L (25-115); ANION GAP 6 MEQ/L (8-16); AST/SGOT 26 U/L (7-37); BILIRUBIN,DIRECT < 0.1 MG/DL (0.0-0.2); BILIRUBIN,TOTAL 0.2 MG/DL (0.2-1.0); BLOOD UREA NITROGEN 11 MG/DL (7-18); CALCIUM LEVEL 8.9 MG/DL (8.5-10.1); CARBON DIOXIDE LEVEL 27 MEQ/L (21-32); CHLORIDE LEVEL 111 MEQ/L (98-107); CREATININE FOR GFR 0.74 MG/DL (0.55-1.02); GLOMERULAR FILTRATION RATE > 60.0 (>60); GLUCOSE, FASTING 103 MG/DL (70-105); LIPASE 259 U/L (73-393); SODIUM LEVEL 144 MEQ/L (136-145); TOTAL PROTEIN 7.2 GM/DL (6.4-8.2)
[2017-06-30] MEDS: PANTOPRAZOLE 40MG TAB (PROTONIX) PO (10:45)
== END 2017-06-30 11:05 | disposition home or self-care (01) ==
LOC: M ED 08:32
DX: K29.00 Acute gastritis without bleeding (principal); J45.909 Unspecified asthma, uncomplicated; F31.9 Bipolar disorder, unspecified; F41.9 Anxiety disorder, unspecified; Z87.442 Personal history of urinary calculi; Z79.899 Other long term (current) drug therapy; Z88.2 Allergy status to sulfonamides; Z91.030 Bee allergy status; Z88.4 Allergy status to anesthetic agent; Z88.8 Allergy status to other drugs, medicaments and biological substances
CPT/HCPCS: J2405

== ENCOUNTER 2017-07-14 08:43 | Emergency (ER) | payer OTHER | END 2017-07-14 09:32 | disposition home or self-care (01) | LOC: M ED 08:43 | DX: S50.861A Insect bite (nonvenomous) of right forearm, initial encounter (principal); W57.XXXA Bitten or stung by nonvenomous insect and other nonvenomous arthropods, initial encounter; Y92.89 Other specified places as the place of occurrence of the external cause; J45.909 Unspecified asthma, uncomplicated; Z79.899 Other long term (current) drug therapy; Z88.4 Allergy status to anesthetic agent; Z88.8 Allergy status to other drugs, medicaments and biological substances; Z88.2 Allergy status to sulfonamides | CPT/HCPCS: 99282 ==

== ENCOUNTER → 2017-08-14 | Outpatient (REF) | payer OTHER | LOC: M LAB REF 18:40 | DX: J02.9 Acute pharyngitis, unspecified (principal) | CPT/HCPCS: 87081 ==

== ENCOUNTER → 2017-11-09 | Outpatient (CLI) | payer OTHER | LOC: M WUC 12:13 | DX: S50.12XA Contusion of left forearm, initial encounter (principal); X58.XXXA Exposure to other specified factors, initial encounter; Y92.89 Other specified places as the place of occurrence of the external cause; Y93.9 Activity, unspecified; Y99.9 Unspecified external cause status | CPT/HCPCS: 73090 ==

== ENCOUNTER 2017-12-25 21:50 | Emergency (ER) | payer OTHER ==
[2017-12-25 22:22] LABS: CALCIUM OXALATE CRYSTALS RFX SMALL; KETONE, URINE AUTO RFX TRACE mg/dL (NEGATIVE); MUCUS, URINE RFX SMALL (NEGATIVE); RBC, URINE AUTO RFX 2 /HPF (0-3); SPECIFIC GRAVITY UR AUTO RFX 1.019 (1.002-1.035); SQUAM EPITHELIAL CELL UR AURFX 7 /HPF (0-6)
[2017-12-25 22:26] LABS: NITRITE, URINE AUTO RFX POSITIVE (NEGATIVE)
[2017-12-25 22:27] LABS: LEUKOCYTE ESTERASE UR AUTO RFX TRACE (NEGATIVE); WBC, URINE AUTO RFX 17 /HPF (0-3)
[2017-12-26] MEDS: METOCLOPRAMIDE INJ 10MG/2ML VIAL (J2765) IV (00:03)
[2017-12-26] MEDS: KETOROLAC 30 MG/ML VIAL (J1885) IV (00:03)
[2017-12-26 00:32] LABS: BASO % 0.5 % (0.0-1.0); EOS # 0.2 10^3/uL (0.0-0.50); EOS % 1.9 % (0.0-3.0); HEMATOCRIT 40.7 % (36.0-47.0); HEMOGLOBIN 13.9 g/dl (12.0-15.5); IMMATURE GRANULOCYTE % 0.3 % (0-3.0); LYMPH # 2.6 10^3/uL (1.5-4.5); LYMPH % 32.4 % (24.0-44.0); MEAN CORPUSCULAR HEMOGLOBIN 31.2 pg (27.0-33.0); MEAN CORPUSCULAR HGB CONC 34.2 g/dl (32.0-36.5); MEAN CORPUSCULAR VOLUME 91.3 fl (80.0-96.0); MONO # 0.5 10^3/uL (0.0-0.8); MONO % 6.3 % (0.0-5.0); NEUTROPHILS # 4.6 10^3/uL (1.8-7.7); NEUTROPHILS % 58.6 % (36.0-66.0); PLATELET COUNT, AUTOMATED 188 10^3/uL (150-450); RED BLOOD COUNT 4.46 10^6/uL (4.00-5.40); RED CELL DISTRIBUTION WIDTH 13.2 % (11.5-14.5); WHITE BLOOD COUNT 7.9 10^3/uL (4.0-10.0)
[2017-12-26] MEDS: GASTROGRAFIN SOLUTION 30ML PO ×2 (00:45→01:15)
[2017-12-26 00:46] LABS: ALBUMIN 3.9 GM/DL (3.2-5.2); ALBUMIN/GLOBULIN RATIO 1.39 (1.00-1.93); ALKALINE PHOSPHATASE 65 U/L (45-117); ALT/SGPT 35 U/L (12-78); AMYLASE 27 U/L (25-115); ANION GAP 6 MEQ/L (8-16); AST/SGOT 23 U/L (7-37); BILIRUBIN,DIRECT 0.1 MG/DL (0.0-0.2); BILIRUBIN,TOTAL 0.4 MG/DL (0.2-1.0); BLOOD UREA NITROGEN 10 MG/DL (7-18); C REACTIVE PROTEIN QUANTITATIV < 0.30 MG/DL (0.00-0.30); CALCIUM LEVEL 8.8 MG/DL (8.5-10.1); CARBON DIOXIDE LEVEL 28 MEQ/L (21-32); CHLORIDE LEVEL 107 MEQ/L (98-107); CREATININE FOR GFR 0.75 MG/DL (0.55-1.30); GLOMERULAR FILTRATION RATE > 60.0 (>60); GLUCOSE, FASTING 89 MG/DL (70-100); LIPASE 208 U/L (73-393); POTASSIUM SERUM 3.4 MEQ/L (3.5-5.1); SODIUM LEVEL 141 MEQ/L (136-145); TOTAL PROTEIN 6.7 GM/DL (6.4-8.2)
[2017-12-26] MEDS ORDERED: ISOVUE-370 76% 100ML VIAL (Q9967) As Ordered (02:08)
[2017-12-26] MEDS: CIPROFLOXACIN 500 MG TAB PO (05:25)
== END 2017-12-26 05:26 | disposition home or self-care (01) ==
LOC: M ED 21:50
DX: N39.0 Urinary tract infection, site not specified (principal); K59.00 Constipation, unspecified; J45.909 Unspecified asthma, uncomplicated; F41.9 Anxiety disorder, unspecified; F31.9 Bipolar disorder, unspecified; F32.9 Major depressive disorder, single episode, unspecified; Z98.84 Bariatric surgery status; Z79.899 Other long term (current) drug therapy; Z91.030 Bee allergy status; Z91.018 Allergy to other foods; Z88.2 Allergy status to sulfonamides; Z88.4 Allergy status to anesthetic agent; Z88.8 Allergy status to other drugs, medicaments and biological substances
CPT/HCPCS: Q9963

== ENCOUNTER → 2018-02-08 | Outpatient (CLI) | payer OTHER | LOC: M RAD 15:19 | DX: M47.812 Spondylosis without myelopathy or radiculopathy, cervical region (principal) | CPT/HCPCS: 70540 ==

== ENCOUNTER → 2018-02-25 | Outpatient (CLI) | payer OTHER ==
[2018-02-25 09:40] LABS: BASO % 0.5 % (0.0-1.0); EOS # 0.2 10^3/uL (0.0-0.50); EOS % 4.1 % (0.0-3.0); HEMATOCRIT 40.8 % (36.0-47.0); HEMOGLOBIN 14.1 g/dl (12.0-15.5); IMMATURE GRANULOCYTE % 0.2 % (0-3.0); LYMPH # 1.8 10^3/uL (1.5-4.5); LYMPH % 31.4 % (24.0-44.0); MEAN CORPUSCULAR HGB CONC 34.6 g/dl (32.0-36.5); MEAN CORPUSCULAR VOLUME 92.5 fl (80.0-96.0); MONO # 0.4 10^3/uL (0.0-0.8); MONO % 7.2 % (0.0-5.0); NEUTROPHILS # 3.2 10^3/uL (1.8-7.7); NEUTROPHILS % 56.6 % (36.0-66.0); PLATELET COUNT, AUTOMATED 162 10^3/uL (150-450); RED BLOOD COUNT 4.41 10^6/uL (4.00-5.40); RED CELL DISTRIBUTION WIDTH 12.6 % (11.5-14.5); WHITE BLOOD COUNT 5.6 10^3/uL (4.0-10.0)
[2018-02-25 09:42] LABS: HEMATOCRIT 40.8 % (36.0-47.0)
[2018-02-25 10:03] LABS: ESTIMATED AVERAGE GLUCOSE 91 MG/DL (60-110); HEMOGLOBIN A1c 4.8 %
[2018-02-25 10:18] LABS: ALBUMIN 3.9 GM/DL (3.2-5.2); ALBUMIN/GLOBULIN RATIO 1.39 (1.00-1.93); ALKALINE PHOSPHATASE 67 U/L (45-117); ALT/SGPT 28 U/L (12-78); ANION GAP 9 MEQ/L (8-16); AST/SGOT 14 U/L (7-37); BILIRUBIN,TOTAL 0.6 MG/DL (0.2-1.0); BLOOD UREA NITROGEN 9 MG/DL (7-18); CALCIUM LEVEL 9.2 MG/DL (8.5-10.1); CARBON DIOXIDE LEVEL 27 MEQ/L (21-32); CHLORIDE LEVEL 109 MEQ/L (98-107); FERRITIN 86 NG/ML (8-252); GLOMERULAR FILTRATION RATE > 60.0 (>60); GLUCOSE, FASTING 84 MG/DL (70-100); IRON (FE) 110 UG/DL (50-170); MAGNESIUM LEVEL 2.2 MG/DL (1.8-2.4); PERCENT SATURATION 35.7 % (13.2-45.0); POTASSIUM SERUM 3.8 MEQ/L (3.5-5.1); SODIUM LEVEL 145 MEQ/L (136-145); TOTAL IRON BINDING CAPACITY 308 UG/DL (250-450); TOTAL PROTEIN 6.7 GM/DL (6.4-8.2)
[2018-02-27 09:55] LABS: TOTAL 25(OH) VITAMIN D 28.6 NG/ML (30.0-100.0); VITAMIN B12 LEVEL 340 PG/ML (247-911)
[2018-02-28 16:30] LABS: PRETREATED FOLATE FOR RBCFOL 7.5 NG/ML
== END ==
LOC: M LAB 08:54
DX: K91.2 Postsurgical malabsorption, not elsewhere classified (principal); E55.9 Vitamin D deficiency, unspecified; Z98.84 Bariatric surgery status
CPT/HCPCS: 83550

== ENCOUNTER → 2018-02-28 | Outpatient (CLI) | payer OTHER | LOC: M RAD 11:38 | DX: S83.241A Other tear of medial meniscus, current injury, right knee, initial encounter (principal); X58.XXXA Exposure to other specified factors, initial encounter; Y92.9 Unspecified place or not applicable; M17.11 Unilateral primary osteoarthritis, right knee; M25.461 Effusion, right knee | CPT/HCPCS: 73721 ==

== ENCOUNTER 2018-03-19 20:50 | Emergency (ER) | payer OTHER ==
[2018-03-19] MEDS: ONDANSETRON 4MG/2ML VIAL (J2405) IV (21:30)
[2018-03-19] MEDS: NS 1,000 ML IV (21:30)
[2018-03-19 21:50] LABS: BASO % 0.3 % (0.0-1.0); EOS # 0.2 10^3/uL (0.0-0.50); EOS % 2.6 % (0.0-3.0); HEMATOCRIT 40.1 % (36.0-47.0); HEMOGLOBIN 13.8 g/dl (12.0-15.5); IMMATURE GRANULOCYTE % 0.2 % (0-3.0); LYMPH # 2.3 10^3/uL (1.5-4.5); MEAN CORPUSCULAR HEMOGLOBIN 31.4 pg (27.0-33.0); MEAN CORPUSCULAR HGB CONC 34.4 g/dl (32.0-36.5); MEAN CORPUSCULAR VOLUME 91.3 fl (80.0-96.0); MONO # 0.4 10^3/uL (0.0-0.8); MONO % 6.5 % (0.0-5.0); NEUTROPHILS # 3.5 10^3/uL (1.8-7.7); NEUTROPHILS % 54.4 % (36.0-66.0); PLATELET COUNT, AUTOMATED 166 10^3/uL (150-450); RED BLOOD COUNT 4.39 10^6/uL (4.00-5.40); RED CELL DISTRIBUTION WIDTH 12.5 % (11.5-14.5); WHITE BLOOD COUNT 6.4 10^3/uL (4.0-10.0)
[2018-03-19] MEDS: MORPHINE 2 MG/ML 1ML SYRINGE (J2270) IV ×3 (22:00→22:42)
[2018-03-19 22:11] LABS: INFLUENZA A AMPLIFICATION NEGATIVE (NEGATIVE); INFLUENZA B AMPLIFICATION NEGATIVE (NEGATIVE); RSV AMPLIFICATION NEGATIVE (NEGATIVE)
[2018-03-19 22:13] LABS: ALBUMIN 3.9 GM/DL (3.2-5.2); ALKALINE PHOSPHATASE 68 U/L (45-117); ALT/SGPT 22 U/L (12-78); ANION GAP 7 MEQ/L (8-16); AST/SGOT 11 U/L (7-37); BILIRUBIN,DIRECT 0.2 MG/DL (0.0-0.2); BILIRUBIN,TOTAL 0.5 MG/DL (0.2-1.0); BLOOD UREA NITROGEN 7 MG/DL (7-18); CALCIUM LEVEL 8.9 MG/DL (8.5-10.1); CARBON DIOXIDE LEVEL 26 MEQ/L (21-32); CHLORIDE LEVEL 113 MEQ/L (98-107); CREATININE FOR GFR 0.59 MG/DL (0.55-1.30); GLOMERULAR FILTRATION RATE > 60.0 (>60); GLUCOSE, FASTING 94 MG/DL (70-100); LIPASE 186 U/L (73-393); POTASSIUM SERUM 3.4 MEQ/L (3.5-5.1); SODIUM LEVEL 146 MEQ/L (136-145); TOTAL PROTEIN 6.2 GM/DL (6.4-8.2)
[2018-03-19 22:13] LABS: LACTIC ACID SEPSIS PROTOCOL 0.8 MMOL/L (0.4-2.0)
[2018-03-19 22:48] LABS: AMORPHOUS SEDIMENT RFX SMALL (NEGATIVE); CALCIUM OXALATE CRYSTALS RFX SMALL; KETONE, URINE AUTO RFX NEGATIVE (NEGATIVE); LEUKOCYTE ESTERASE UR AUTO RFX TRACE (NEGATIVE); NITRITE, URINE AUTO RFX POSITIVE (NEGATIVE); RBC, URINE AUTO RFX 1 /HPF (0-3); SPECIFIC GRAVITY UR AUTO RFX 1.014 (1.002-1.035); SQUAM EPITHELIAL CELL UR AURFX 1 /HPF (0-6); WBC, URINE AUTO RFX 13 /HPF (0-3)
[2018-03-19] MEDS ORDERED: GASTROGRAFIN SOLUTION 30ML (Q9963) As Ordered (23:15)
[2018-03-19] MEDS: GASTROGRAFIN SOLUTION 30ML PO ×2 (23:20→23:50)
[2018-03-20] MEDS ORDERED: ISOVUE-370 76% 100ML VIAL (Q9967) As Ordered (00:42)
[2018-03-20] MEDS: CEPHALEXIN 500 MG CAP PO (03:00)
== END 2018-03-20 03:06 | disposition home or self-care (01) ==
LOC: M ED 03-20 03:06
DX: N30.90 Cystitis, unspecified without hematuria (principal); R11.0 Nausea; K21.9 Gastro-esophageal reflux disease without esophagitis; Z98.84 Bariatric surgery status; Z88.4 Allergy status to anesthetic agent; Z91.030 Bee allergy status; Z88.2 Allergy status to sulfonamides; Z88.8 Allergy status to other drugs, medicaments and biological substances; Z91.018 Allergy to other foods; Z79.899 Other long term (current) drug therapy
CPT/HCPCS: J2405

== ENCOUNTER 2018-03-27 12:35 | Emergency (ER) | payer OTHER ==
[2018-03-27 14:15] LABS: CALCIUM OXALATE CRYSTALS RFX SMALL; KETONE, URINE AUTO RFX TRACE mg/dL (NEGATIVE); MUCUS, URINE RFX SMALL (NEGATIVE); NITRITE, URINE AUTO RFX NEGATIVE (NEGATIVE); RBC, URINE AUTO RFX 1 /HPF (0-3); SPECIFIC GRAVITY UR AUTO RFX 1.021 (1.002-1.035); SQUAM EPITHELIAL CELL UR AURFX 6 /HPF (0-6)
[2018-03-27 14:17] LABS: LEUKOCYTE ESTERASE UR AUTO RFX 1+ (NEGATIVE); WBC, URINE AUTO RFX 13 /HPF (0-3)
[2018-03-27] MEDS: traMADol 50 MG TAB PO (15:45)
[2018-03-27 15:55] LABS: BASO # 0.1 10^3/uL (0.0-0.2); BASO % 0.8 % (0.0-1.0); EOS # 0.3 10^3/uL (0.0-0.50); EOS % 4.8 % (0.0-3.0); HEMATOCRIT 42.4 % (36.0-47.0); HEMOGLOBIN 14.7 g/dl (12.0-15.5); IMMATURE GRANULOCYTE % 0.2 % (0-3.0); LYMPH # 1.9 10^3/uL (1.5-4.5); LYMPH % 31.3 % (24.0-44.0); MEAN CORPUSCULAR HEMOGLOBIN 31.3 pg (27.0-33.0); MEAN CORPUSCULAR HGB CONC 34.7 g/dl (32.0-36.5); MEAN CORPUSCULAR VOLUME 90.4 fl (80.0-96.0); MONO # 0.4 10^3/uL (0.0-0.8); MONO % 5.9 % (0.0-5.0); NEUTROPHILS # 3.5 10^3/uL (1.8-7.7); PLATELET COUNT, AUTOMATED 194 10^3/uL (150-450); RED BLOOD COUNT 4.69 10^6/uL (4.00-5.40); RED CELL DISTRIBUTION WIDTH 12.1 % (11.5-14.5); WHITE BLOOD COUNT 6.1 10^3/uL (4.0-10.0)
[2018-03-27 16:17] LABS: D-DIMER QUANT < 270.0 ng/ml (<500)
[2018-03-27 16:26] LABS: ALBUMIN 4.3 GM/DL (3.2-5.2); ALBUMIN/GLOBULIN RATIO 1.59 (1.00-1.93); ALKALINE PHOSPHATASE 76 U/L (45-117); ALT/SGPT 22 U/L (12-78); AMYLASE 21 U/L (25-115); ANION GAP 11 MEQ/L (8-16); AST/SGOT 10 U/L (7-37); BILIRUBIN,TOTAL 0.7 MG/DL (0.2-1.0); BLOOD UREA NITROGEN 12 MG/DL (7-18); CALCIUM LEVEL 9.4 MG/DL (8.5-10.1); CARBON DIOXIDE LEVEL 26 MEQ/L (21-32); CHLORIDE LEVEL 108 MEQ/L (98-107); CK-MB VALUE MASS < 1.0 NG/ML (<3.6); CPK CREATINE PHOSPHOKINASE 31 U/L (26-192); CREATININE FOR GFR 0.64 MG/DL (0.55-1.30); GLOMERULAR FILTRATION RATE > 60.0 (>60); GLUCOSE, FASTING 83 MG/DL (70-100); LIPASE 154 U/L (73-393); MB/CK RELATIVE INDEX 3.23 (< OR =4); POTASSIUM SERUM 3.8 MEQ/L (3.5-5.1); SODIUM LEVEL 145 MEQ/L (136-145); TROPONIN I < 0.02 NG/ML (< 0.10)
[2018-03-27 16:53] LABS: CONTROL LINE UCG INT CTR LINE PRESENT; URINE PREG TEST NEGATIVE (NEGATIVE)
== END 2018-03-27 17:34 | disposition home or self-care (01) ==
LOC: M ED 12:35
DX: J06.9 Acute upper respiratory infection, unspecified (principal); R10.9 Unspecified abdominal pain; N39.0 Urinary tract infection, site not specified; N20.0 Calculus of kidney; J45.909 Unspecified asthma, uncomplicated; F31.9 Bipolar disorder, unspecified; F41.9 Anxiety disorder, unspecified; Z98.84 Bariatric surgery status; Z88.4 Allergy status to anesthetic agent; Z91.030 Bee allergy status; Z88.8 Allergy status to other drugs, medicaments and biological substances; Z88.2 Allergy status to sulfonamides; Z91.018 Allergy to other foods; Z79.899 Other long term (current) drug therapy; Z79.2 Long term (current) use of antibiotics
CPT/HCPCS: 71046

== ENCOUNTER → 2018-05-30 | Outpatient (CLI) | payer OTHER ==
[2018-05-30 21:13] LABS: C REACTIVE PROTEIN QUANTITATIV < 0.30 MG/DL (0.00-0.30)
[2018-05-30 21:13] LABS: RHEUMATOID FACTOR QUANT < 10.0 IU/ML (<15.0)
[2018-05-30 21:29] LABS: ERYTHROCYTE SEDIMENTATION RATE 4 mm/hr (0-20)
[2018-06-02 00:07] LABS: CYCLIC CITRULLINATED PEPTIDE 10 units (0-19)
== END ==
LOC: M ADAMS 13:01
DX: Z15.89 Genetic susceptibility to other disease (principal)
CPT/HCPCS: 86140

== ENCOUNTER → 2018-10-12 | Outpatient (CLI) | payer OTHER ==
[~2018-10-12] MED LIST changes: +BENA25TA10 PO; +BUSP10TA PO; +CEFD1CAP8 PO; +CIPR-249 PO; -CLON1TAB PO; +CLON1TAB8 PO; -DULO30CA PO; +DULO30CA9 PO; -GABA-282 PO; -GABA-283 PO; +GABA-843 PO; +GABA-845 PO; -GABA600T PO; +GABA600T4 PO; +HYDR-3713; +HYDR1CRE93 TOP; +KEFL500C17 PO; +METH2.5T48; +NAPR-885 PO; -NAPR500T3 PO; +PROT1TAB2 PO; +REGL10TA6 PO; +TRAZ-160; +TRAZ-160 PO; -TRAZ50TA11 PO; +VENTAER; -VICO5TAB16 PO; +VICO5TAB17 PO; +ZOFR4TAB14 PO
--- NOTE | 2018-10-12 15:06 | REP ---
RIGHT KNEE, FIVE VIEWS: HISTORY: Acute pain. There is no acute fracture or dislocation. There is mild narrowing of the medial knee joint space and lateral patellofemoral joint space. Osteophytes are present on the femur, tibia, and patella. Calcifications are present posterior to the knee joint space. This represents ligamentous or tendon calcification. IMPRESSION: Degenerative change as described above. Electronically Signed by Oscar Ocampo MD 10/12/2018 03:13 P
== END ==
LOC: M ADAMS 14:19
PROVIDERS: ATTEND Physician Assistant Medical
DX: M17.11 Unilateral primary osteoarthritis, right knee (principal); M25.761 Osteophyte, right knee

== ENCOUNTER → 2018-10-18 | Outpatient (REF) | payer OTHER ==
[2018-10-18 12:56] LABS: BASO % 0.7 % (0.0-1.0); EOS # 0.1 10^3/uL (0.0-0.50); EOS % 2.2 % (0.0-3.0); HEMATOCRIT 42.3 % (36.0-47.0); HEMOGLOBIN 14.1 g/dl (12.0-15.5); LYMPH % 37.6 % (24.0-44.0); MEAN CORPUSCULAR HEMOGLOBIN 30.9 pg (27.0-33.0); MEAN CORPUSCULAR HGB CONC 33.3 g/dl (32.0-36.5); MEAN CORPUSCULAR VOLUME 92.8 fl (80.0-96.0); MONO # 0.4 10^3/uL (0.0-0.8); MONO % 6.7 % (0.0-5.0); NEUTROPHILS # 2.8 10^3/uL (1.8-7.7); NEUTROPHILS % 52.6 % (36.0-66.0); PLATELET COUNT, AUTOMATED 166 10^3/uL (150-450); RED BLOOD COUNT 4.56 10^6/uL (4.00-5.40); WHITE BLOOD COUNT 5.3 10^3/uL (4.0-10.0)
[2018-10-18 13:07] LABS: ALBUMIN 4.1 GM/DL (3.2-5.2); ALT/SGPT 21 U/L (12-78); BILIRUBIN,TOTAL 0.6 MG/DL (0.2-1.0); BLOOD UREA NITROGEN 13 MG/DL (7-18); CALCIUM LEVEL 8.8 MG/DL (8.5-10.1); CARBON DIOXIDE LEVEL 28 MEQ/L (21-32); CHLORIDE LEVEL 109 MEQ/L (98-107); CREATININE FOR GFR 0.64 MG/DL (0.55-1.30); FERRITIN 84 NG/ML (8-252); GLOMERULAR FILTRATION RATE > 60.0 (>60); GLUCOSE, FASTING 78 MG/DL (70-100); IRON (FE) 101 UG/DL (50-170); MAGNESIUM LEVEL 2.2 MG/DL (1.8-2.4); PERCENT SATURATION 35.2 % (13.2-45.0); PHOSPHORUS LEVEL 4.3 MG/DL (2.5-4.9); POTASSIUM SERUM 3.8 MEQ/L (3.5-5.1); SODIUM LEVEL 142 MEQ/L (136-145); TOTAL IRON BINDING CAPACITY 287 UG/DL (250-450); TOTAL PROTEIN 6.4 GM/DL (6.4-8.2)
[2018-10-18 13:19] LABS: TOTAL 25(OH) VITAMIN D 21.3 NG/ML (30.0-100.0)
[2018-10-18 13:20] LABS: VITAMIN B12 LEVEL 270 PG/ML (247-911)
[2018-10-18 13:35] LABS: HEMOGLOBIN A1c 5.2 %
[2018-10-18 16:55] LABS: HEMATOCRIT 42.3 % (36.0-47.0)
== END ==
LOC: M LABDRWAD 12:11
PROVIDERS: ATTEND Surgery
DX: K91.2 Postsurgical malabsorption, not elsewhere classified (principal); Z98.84 Bariatric surgery status; E55.9 Vitamin D deficiency, unspecified

== ENCOUNTER 2018-11-12 18:09 | Emergency (ER) | payer OTHER ==
[~2018-11-12] VITALS: Ht 167.6 cm; Wt 85.5 kg
[~2018-11-12 18:09] MED LIST changes: -TRAZ-160; -TRAZ-160 PO; +TRAZ-252; +TRAZ-252 PO
[2018-11-12 18:58] LABS: HEMATOCRIT 39.2 % (36.0-47.0); HEMOGLOBIN 13.2 g/dl (12.0-15.5); MEAN CORPUSCULAR HEMOGLOBIN 31.1 pg (27.0-33.0); MEAN CORPUSCULAR HGB CONC 33.7 g/dl (32.0-36.5); MEAN CORPUSCULAR VOLUME 92.5 fl (80.0-96.0); PLATELET COUNT, AUTOMATED 190 10^3/uL (150-450); RED BLOOD COUNT 4.24 10^6/uL (4.00-5.40); WHITE BLOOD COUNT 6.6 10^3/uL (4.0-10.0)
--- NOTE | 2018-11-12 19:08 | REP ---
Clinical: Pain and swelling. Technique: AP, lateral, bilateral oblique views of the right knee. Findings: Early advanced tricompartmental osteoarthritic degenerative changes are appreciated. Swelling and moderate effusion. No acute fracture or dislocation. Impression: Degenerative changes. Swelling and effusion. Electronically Signed by Kwan Fox MD 11/12/2018 07:00 P
[2018-11-12] MEDS ORDERED: QUET1TAB7 (19:45)
[2018-11-12] MEDS ORDERED: TIZA4TAB4 (19:45)
[2018-11-12] MEDS ORDERED: LEVOTAB10 (19:45)
[2018-11-12] MEDS ORDERED: TOPI50TA9 (19:45)
[2018-11-12] MEDS ORDERED: EPIN0.3I11 (19:45)
[2018-11-12] MEDS ORDERED: NORCO, ANEXSIA 5/325MG TABLET (HYDROcodone/ACETAMINOPHEN) PO ONE (20:15)
--- NOTE | 2018-11-12 21:07 | REPVR ---
EXAM: US Duplex Right Lower Extremity Veins, Limited EXAM DATE/TIME: 11/12/2018 8:43 PM CLINICAL HISTORY: 38 years old, female; Pain; Leg, upper and leg, lower; Right; Prior surgery; Surgery date: 3-7 days post-operative; Surgery type: Knee surgery; Additional info: Right lower ext. Swelling/pain; R/O dvt TECHNIQUE: Imaging protocol: Real-time Duplex ultrasound of the Right Lower Extremity with 2-D stewart scale, color Doppler flow and spectral waveform analysis. Limited exam was focused on the right lower extremity veins. COMPARISON: No relevant prior studies available. FINDINGS: Right deep veins: Unremarkable. The common femoral, femoral, proximal profunda femoral and popliteal veins are patent without thrombus. Normal Doppler waveforms. Normal compressibility and/or augmentation response. Soft tissues: Unremarkable. IMPRESSION: No sonographic evidence of deep vein thrombosis. Electronically signed by: Abdelrahman Jimenez On 11/12/2018 21:06:37 PM
[2018-11-12] MEDS ORDERED: NORC1TAB7 PO (21:23)
[2018-11-12 21:29] VITALS: BP 119/55
== END 2018-11-12 21:49 | disposition home or self-care (01) ==
LOC: M ED 18:09
DX: M25.461 Effusion, right knee (principal); F31.9 Bipolar disorder, unspecified; Z98.84 Bariatric surgery status; Z79.899 Other long term (current) drug therapy; Z88.2 Allergy status to sulfonamides; Z88.8 Allergy status to other drugs, medicaments and biological substances; Z91.018 Allergy to other foods; Z91.030 Bee allergy status

== ENCOUNTER → 2018-11-17 | Outpatient (REF) | payer OTHER ==
[~2018-11-17] MED LIST changes: +EPIN0.3I11; +LEVOTAB10; +NORC1TAB7 PO; +QUET1TAB7; +TIZA4TAB4; +TOPI50TA9
[2018-11-17 16:54] LABS: BASO % 0.5 % (0.0-1.0); EOS # 0.1 10^3/uL (0.0-0.50); EOS % 1.8 % (0.0-3.0); HEMOGLOBIN 14.3 g/dl (12.0-15.5); LYMPH # 1.5 10^3/uL (1.5-4.5); LYMPH % 26.9 % (24.0-44.0); MEAN CORPUSCULAR HEMOGLOBIN 32.1 pg (27.0-33.0); MEAN CORPUSCULAR HGB CONC 34.9 g/dl (32.0-36.5); MEAN CORPUSCULAR VOLUME 92.1 fl (80.0-96.0); MONO # 0.3 10^3/uL (0.0-0.8); MONO % 6.1 % (0.0-5.0); NEUTROPHILS # 3.6 10^3/uL (1.8-7.7); NEUTROPHILS % 64.5 % (36.0-66.0); PLATELET COUNT, AUTOMATED 192 10^3/uL (150-450); RED BLOOD COUNT 4.45 10^6/uL (4.00-5.40); WHITE BLOOD COUNT 5.6 10^3/uL (4.0-10.0)
[2018-11-17 17:24] LABS: ERYTHROCYTE SEDIMENTATION RATE 14 mm/hr (0-20)
[2018-11-17 17:37] LABS: CRYSTALS, BODY FLUID NONE SEEN (NONE SEEN); SOURCE, BODY FLUID RT KNEE; SOURCE, BODY FLUID CRYSTALS RT KNEE; SYNOVIAL FLUID COLOR RED (YELLOW)
[2018-11-17 19:08] LABS: SOURCE, BODY FLUID GLUCOSE RT KNEE; SOURCE, BODY FLUID URIC ACID RT KNEE; URIC ACID, BODY FLUID 3.8 MG/DL (NOT ESTABLISHED)
[2018-11-20 09:45] LABS: BODY FLUID RHEUMATOID SCREEN NEGATIVE (NEGATIVE)
[2018-11-20 09:53] LABS: MUCIN CLOT TEST 4+ (4+)
== END ==
LOC: M LABDRAW1 16:22
PROVIDERS: ATTEND Orthopaedic Surgery
DX: Z47.89 Encounter for other orthopedic aftercare (principal)

== ENCOUNTER → 2018-12-22 | Outpatient (REF) | payer OTHER | LOC: M LAB REF 10:16 | PROVIDERS: ATTEND Physician Assistant Medical | DX: J02.9 Acute pharyngitis, unspecified (principal) ==

== ENCOUNTER 2019-02-22 16:29 | Emergency (ER) | payer OTHER ==
[~2019-02-22] VITALS: Ht 170.2 cm; Wt 86.9 kg
[~2019-02-22 16:29] MED LIST changes: -HYDR-3713; -TIZA4TAB4; +TIZA4TAB4 PO
[2019-02-22] MEDS ORDERED: CLON-412 PO (17:36)
[2019-02-22] MEDS ORDERED: VENL75CA47 PO (17:36)
[2019-02-22] MEDS ORDERED: SERO1TAB3 PO (17:36)
[2019-02-22] MEDS ORDERED: ACETAMINOPHEN 325 MG TAB PO ONE (18:30)
[2019-02-22] MEDS ORDERED: diphenhydrAMINE 25 MG CAP PO ONE (18:30)
[2019-02-22] MEDS ORDERED: METHOCARBAMOL 750 MG TAB PO ONE (18:30)
[2019-02-22] MEDS ORDERED: METOCLOPRAMIDE 10 MG TAB PO ONE ×2 (19:00→19:45)
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
[2019-02-22 19:33] VITALS: BP 114/75
[2019-02-22] MEDS ORDERED: ROBA750T4 PO (19:37)
[2019-02-22] MEDS ORDERED: KETOROLAC 60 MG/2 ML VIAL (J1885) IM ONE (19:45)
== END 2019-02-22 20:23 | disposition home or self-care (01) ==
LOC: M ED 16:29
DX: S06.0X0A Concussion without loss of consciousness, initial encounter (principal); M62.838 Other muscle spasm; M50.30 Other cervical disc degeneration, unspecified cervical region; V43.52XA Car driver injured in collision with other type car in traffic accident, initial encounter; Y92.9 Unspecified place or not applicable; Y93.9 Activity, unspecified; Y99.9 Unspecified external cause status; J45.909 Unspecified asthma, uncomplicated; Z98.84 Bariatric surgery status; G89.29 Other chronic pain; M54.5 Low back pain; R51 Headache; Z79.899 Other long term (current) drug therapy; Z88.2 Allergy status to sulfonamides; Z88.8 Allergy status to other drugs, medicaments and biological substances; Z91.030 Bee allergy status; Z91.018 Allergy to other foods

== ENCOUNTER 2019-03-05 11:23 | Emergency (ER) | payer OTHER ==
[~2019-03-05] VITALS: Ht 170.2 cm; Wt 85.4 kg
[~2019-03-05 11:23] MED LIST changes: +CLON-412 PO; +SERO1TAB3 PO; +VENL75CA47 PO
[2019-03-05] MEDS ORDERED: diphenhydrAMINE INJ 50MG/ML VIAL (J1200) IV STA (12:27)
[2019-03-05] MEDS ORDERED: METOCLOPRAMIDE INJ 10MG/2ML VIAL (J2765) IV ONE (12:30)
[2019-03-05] MEDS ORDERED: KETOROLAC 30 MG/ML VIAL (J1885) IV ONE (12:30)
--- NOTE | 2019-03-05 13:39 | REP ---
CT of the brain without IV contrast: Comparison is 02/22/2019. There is no subdural or epidural hematoma. There is no edema, mass effect or midline shift. The cortical stripe is unremarkable. Ventricles are normal size. There is opacification of a few ethmoid sinus air cells, compatible with sinusitis, otherwise, the visualized paranasal sinuses and mastoid air cells are clear. Impression: There is no hemorrhage, acute infarct or mass. Essentially negative CT study of the brain. Electronically Signed by Simeon Grey MD 03/05/2019 01:31 P
--- NOTE | 2019-03-05 13:41 | REP ---
CT CERVICAL SPINE: CT cervical spine performed in the axial plane. Sagittal and coronal reconstruction images are performed. There is no acute fracture or dislocation. Vertebral bodies are normal in height and are well aligned. There is no prevertebral soft tissue swelling. There is spurring with disc space narrowing and subchondral sclerosis at C6-7. No abnormal density is seen in the spinal canal. IMPRESSION: No acute fracture or dislocation. Mild degenerative changes C6-7 disc space. Electronically Signed by Simeon Cee MD 03/05/2019 04:21 P
[2019-03-05] MEDS ORDERED: REGL10TA6 PO (13:57)
[2019-03-05 14:03] VITALS: BP 110/60
== END 2019-03-05 14:05 | disposition home or self-care (01) ==
LOC: M ED 11:23
DX: G44.209 Tension-type headache, unspecified, not intractable (principal); G89.29 Other chronic pain; Z79.899 Other long term (current) drug therapy; Z88.1 Allergy status to other antibiotic agents; Z88.2 Allergy status to sulfonamides; Z88.4 Allergy status to anesthetic agent; Z88.8 Allergy status to other drugs, medicaments and biological substances; Z91.018 Allergy to other foods; Z91.030 Bee allergy status
CPT/HCPCS: 70450; 72125; 96374; 96375; 99284; J1200; J1885; J2765

== ENCOUNTER → 2019-05-29 | Outpatient (CLI) | payer OTHER ==
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
== END ==
LOC: M PLAIMG 10:07
PROVIDERS: ATTEND Physician Assistant Medical
DX: R68.84 Jaw pain (principal)

== ENCOUNTER → 2019-06-06 | Outpatient (REF) | payer OTHER | LOC: M LAB REF 19:02 | PROVIDERS: ATTEND Physician Assistant Medical | DX: N39.0 Urinary tract infection, site not specified (principal) ==

== ENCOUNTER 2019-06-11 16:17 | Emergency (ER) | payer OTHER ==
[~2019-06-11] VITALS: Ht 167.6 cm; Wt 91.2 kg
[2019-06-11 18:52] LABS: BASO % 0.7 % (0.0-1.0); EOS # 0.2 10^3/uL (0.0-0.5); EOS % 3.2 % (0.0-3.0); HEMATOCRIT 43.6 % (36.0-47.0); HEMOGLOBIN 14.4 g/dl (12.0-15.5); LYMPH # 1.7 10^3/uL (1.5-5.0); LYMPH % 31.1 % (24.0-44.0); MEAN CORPUSCULAR HEMOGLOBIN 31.4 pg (27.0-33.0); MEAN CORPUSCULAR VOLUME 95.2 fl (80.0-96.0); MONO # 0.4 10^3/uL (0.0-0.8); MONO % 7.3 % (0.0-5.0); NEUTROPHILS # 3.2 10^3/uL (1.5-8.5); NEUTROPHILS % 57.5 % (36.0-66.0); PLATELET COUNT, AUTOMATED 194 10^3/uL (150-450); RED BLOOD COUNT 4.58 10^6/uL (4.00-5.40); WHITE BLOOD COUNT 5.6 10^3/uL (4.0-10.0)
--- NOTE | 2019-06-11 18:54 | REPVR ---
PROCEDURE INFORMATION: Exam: CT Abdomen And Pelvis Without Contrast Exam date and time: 06/11/2019 6:04 PM Age: 38 years old Clinical indication: Abdominal pain; Flank; Left; Additional info: Left flank pain; R/O stone TECHNIQUE: Imaging protocol: Computed tomography of the abdomen and pelvis without contrast. Axial, coronal and sagittal reformatted images were created and reviewed. Radiation optimization: All CT scans at this facility use at least one of these dose optimization techniques: automated exposure control; mA and/or kV adjustment per patient size (includes targeted exams where dose is matched to clinical indication); or iterative reconstruction. COMPARISON: CT ABD/PEL W/IV ORAL CONTRAS 03/20/2018 12:42 AM FINDINGS: Liver: Unremarkable. Gallbladder and bile ducts: No radiodense gallstones. No biliary ductal dilatation. Pancreas: Unremarkable. Spleen: Unremarkable. Adrenals: Unremarkable. Kidneys and ureters: Nonobstructing left renal calculi and/or parenchymal calcifications. No hydronephrosis. Stomach and bowel: Status post gastric bypass surgery. Moderate amount of retained stool in the colon. No obstruction. No bowel wall thickening. No pneumatosis. Appendix: Normal. Intraperitoneal space: No free fluid. No organized fluid collection. No free air. Vasculature: Unremarkable. No aneurysm. Lymph nodes: No pathologically enlarged lymph nodes. Bladder: Unremarkable. Reproductive: Status post hysterectomy. Bones/joints: No acute osseous abnormality. Osteopenia. Mild degenerative changes. Soft tissues: Unremarkable. IMPRESSION: 1. Limited noncontrast examination without CT evidence of acute intra-abdominal or pelvic pathology. 2. Additional findings, as above. Electronically signed by: Abdelrahman Jimenez On 06/11/2019 18:53:54 PM
[2019-06-11 19:23] VITALS: BP 137/91
== END 2019-06-11 19:35 | disposition home or self-care (01) ==
LOC: M ED 16:17
DX: R10.9 Unspecified abdominal pain (principal); F31.9 Bipolar disorder, unspecified; Z79.51 Long term (current) use of inhaled steroids; Z79.899 Other long term (current) drug therapy; Z87.442 Personal history of urinary calculi; Z88.2 Allergy status to sulfonamides; Z88.8 Allergy status to other drugs, medicaments and biological substances; Z91.030 Bee allergy status; Z91.018 Allergy to other foods

== ENCOUNTER → 2019-07-21 | Outpatient (CLI) | payer OTHER ==
--- NOTE | 2019-07-21 10:28 | REP ---
PA and lateral chest three views including two PA and single lateral views: Comparison is 03/27/2018. The lung farnsworth are clear. The cardiac size is normal. The lopez, mediastinum, and skeletal structures are unremarkable. Impression: Negative PA and lateral chest. There is no interval change. Electronically Signed by Simeon Grey MD 07/21/2019 10:19 A
== END ==
LOC: M ADAMS 09:34
PROVIDERS: ATTEND Physician Assistant
DX: R05 Cough (principal); R50.9 Fever, unspecified

== ENCOUNTER → 2019-09-03 | Outpatient (CLI) | payer OTHER ==
--- NOTE | 2019-09-03 20:36 | REP ---
Clinical: Pain. Technique: AP, lateral, bilateral oblique views of the left hand. Findings: Osseous structures, joint spaces, and surrounding soft tissues are essentially age-appropriate. No acute fracture dislocation. No overt arthritic changes. No subcutaneous emphysema or foreign body. Impression: Age-appropriate left hand radiographs. Electronically Signed by Kwan Fox MD 09/03/2019 08:28 P
== END ==
LOC: M ADAMS 13:26
PROVIDERS: ATTEND Physician Assistant
DX: M79.642 Pain in left hand (principal)

== ENCOUNTER 2019-09-10 12:41 | Emergency (ER) | payer OTHER ==
[~2019-09-10] VITALS: Ht 167.6 cm; Wt 98.6 kg
[2019-09-10] MEDS ORDERED: ARIP1TAB6 (12:54)
[2019-09-10] MEDS ORDERED: PREG50CA2 (12:54)
[2019-09-10] MEDS ORDERED: ALBUTEROL 90 MCG/ACT 8GM HFA INHALER INH ONE (13:30)
--- NOTE | 2019-09-10 14:02 | REP ---
Clinical: Cough and shortness of breath . Comparison: 07/21/2019 . Findings: The mediastinum and cardiac silhouette are stable and within normal limits for portable technique. The lung farnsworth are clear without acute consolidation, effusion, or pneumothorax. Skeletal structures are intact. Impression: No acute cardiopulmonary process appreciated. Electronically Signed by Kwan Fox MD 09/10/2019 01:53 P
[2019-09-10 15:51] VITALS: BP 140/84
== END 2019-09-10 16:01 | disposition home or self-care (01) ==
LOC: M ED 12:41
DX: J06.9 Acute upper respiratory infection, unspecified (principal); R42 Dizziness and giddiness; Z98.84 Bariatric surgery status; J45.909 Unspecified asthma, uncomplicated; F31.9 Bipolar disorder, unspecified; F41.9 Anxiety disorder, unspecified; Z88.2 Allergy status to sulfonamides; Z88.4 Allergy status to anesthetic agent; Z88.8 Allergy status to other drugs, medicaments and biological substances; Z91.030 Bee allergy status; Z91.018 Allergy to other foods; Z79.51 Long term (current) use of inhaled steroids; Z79.899 Other long term (current) drug therapy
CPT/HCPCS: 71045; 81001; 87486; 87581; 87633; 87798; 94640; 99284; U0002

== ENCOUNTER 2019-11-19 23:08 | Emergency (ER) | payer OTHER ==
[~2019-11-19] VITALS: Ht 170.2 cm; Wt 100.0 kg
[~2019-11-19 23:08] MED LIST changes: +ARIP1TAB6; +CYCL-707 PO; -CYCL10TA PO; +PREG50CA2
[2019-11-19] MEDS ORDERED: EFFE75CA2 (23:15)
[2019-11-19] MEDS ORDERED: REME15TA (23:15)
[2019-11-19] MEDS ORDERED: ABIL1INJ (23:15)
[2019-11-19] MEDS ORDERED: PREG100C (23:15)
[2019-11-19] MEDS ORDERED: PENI500T PO (23:51)
[2019-11-20] MEDS ORDERED: PENICILLIN V POTASSIUM 500 MG TAB PO ONE
[2019-11-20] MEDS ORDERED: ACETAMINOPHEN 325 MG TAB PO ONE
[2019-11-20 00:34] VITALS: BP 125/83
== END 2019-11-20 00:37 | disposition home or self-care (01) ==
LOC: M ED 23:08
DX: R68.84 Jaw pain (principal); I10 Essential (primary) hypertension; E11.9 Type 2 diabetes mellitus without complications; Z98.84 Bariatric surgery status; Z90.710 Acquired absence of both cervix and uterus; Z98.51 Tubal ligation status; Z79.899 Other long term (current) drug therapy; Z88.6 Allergy status to analgesic agent; Z88.8 Allergy status to other drugs, medicaments and biological substances; Z91.030 Bee allergy status; Z91.018 Allergy to other foods

== ENCOUNTER 2019-11-22 16:56 | Emergency (ER) | payer OTHER ==
[~2019-11-22] VITALS: Ht 167.6 cm; Wt 102.7 kg
[2019-11-22 16:56] VITALS: BP 125/79
[~2019-11-22 16:56] MED LIST changes: +ABIL1INJ; +EFFE75CA2; +PENI500T PO; +PREG100C; +REME15TA
[2019-11-22] MEDS ORDERED: ACET-683 PO (17:01)
[2019-11-22] MEDS ORDERED: NORCO, ANEXSIA 5/325MG TABLET (HYDROcodone/ACETAMINOPHEN) PO ONE (17:15)
[2019-11-22] MEDS ORDERED: HYDR-3715 PO (17:19)
[2019-11-22] MEDS ORDERED: MAGICMW SSP (17:23)
[2019-11-22] MEDS ORDERED: KETOROLAC 60MG 2ML VIAL IM ONE (17:30)
== END 2019-11-22 17:48 | disposition home or self-care (01) ==
LOC: M ED 16:56
DX: K08.89 Other specified disorders of teeth and supporting structures (principal); K02.9 Dental caries, unspecified; Z88.2 Allergy status to sulfonamides; Z88.8 Allergy status to other drugs, medicaments and biological substances; Z91.030 Bee allergy status; Z88.4 Allergy status to anesthetic agent; Z98.84 Bariatric surgery status; F41.9 Anxiety disorder, unspecified; F31.9 Bipolar disorder, unspecified
CPT/HCPCS: 99282; J1885

== ENCOUNTER → 2020-07-09 | Outpatient (CLI) | payer OTHER ==
[~2020-07-09] MED LIST changes: +ACET-683 PO; -ASPI81TA85 PO; +ASPI81TA86 PO; +GABA-282 PO; -GABA-843 PO; +HYDR-3715 PO; +MAGICMW SSP; +MIRT-62; -QUET1TAB7; +QUET25TA3; -REME15TA
== END ==
LOC: M LABSMTC 11:48
PROVIDERS: ATTEND Family Medicine
DX: Z20.822 Contact with and (suspected) exposure to COVID-19 (principal)

== ENCOUNTER → 2021-09-11 | Outpatient (CLI) | payer OTHER ==
[~2021-09-11] MED LIST changes: -CEFD1CAP8 PO; +CEFD300C41 PO; +GABA-283 PO; -GABA-845 PO; -HYDR1CRE93 TOP; +HYDR28CR33 TOP; +QUET1TAB17; -QUET25TA3; +TIZA10TA PO; -TIZA4TAB4 PO
[2021-09-11 17:37] LABS: BASO % 0.6 % (0.0-1.0); EOS # 0.2 10^3/uL (0.0-0.5); EOS % 2.9 % (0.0-3.0); HEMATOCRIT 40.1 % (36.0-47.0); HEMOGLOBIN 13.9 g/dl (12.0-15.5); LYMPH % 29.3 % (24.0-44.0); MEAN CORPUSCULAR HEMOGLOBIN 31.4 pg (27.0-33.0); MEAN CORPUSCULAR HGB CONC 34.7 g/dl (32.0-36.5); MEAN CORPUSCULAR VOLUME 90.5 fl (80.0-96.0); MONO # 0.4 10^3/uL (0.0-0.8); MONO % 6.1 % (2.0-8.0); NEUTROPHILS # 4.2 10^3/uL (1.5-8.5); NEUTROPHILS % 60.7 % (36.0-66.0); PLATELET COUNT, AUTOMATED 205 10^3/uL (150-450); RED BLOOD COUNT 4.43 10^6/uL (4.00-5.40); WHITE BLOOD COUNT 6.9 10^3/uL (4.0-10.0)
[2021-09-11 18:08] LABS: ALBUMIN 3.8 GM/DL (3.2-5.2); ALT/SGPT 21 U/L (12-78); BILIRUBIN,TOTAL 0.2 MG/DL (0.2-1.0); BLOOD UREA NITROGEN 11 MG/DL (7-18); CALCIUM LEVEL 8.8 MG/DL (8.5-10.1); CARBON DIOXIDE LEVEL 30 MEQ/L (21-32); CHLORIDE LEVEL 109 MEQ/L (98-107); CHOLESTEROL LEVEL 137 MG/DL (<200); CHOLESTEROL RISK RATIO 3.113 (<5); CREATININE FOR GFR 0.57 MG/DL (0.55-1.30); GLOMERULAR FILTRATION RATE > 60.0 (>58); GLUCOSE, FASTING 96 MG/DL (70-100); HDL CHOLESTEROL 44 MG/DL (>40); LDL CHOLESTEROL 77 MG/DL (<100); NON-HDL-C 93 MG/DL; RHEUMATOID FACTOR QUANT < 10.0 IU/ML (<15.0); SODIUM LEVEL 140 MEQ/L (136-145); THYROID STIMULATING HORMONE 0.691 uIU/ML (0.358-3.740); TOTAL PROTEIN 6.5 GM/DL (6.4-8.2); TRIGLYCERIDES LEVEL 80 MG/DL (<150)
[2021-09-11 18:10] LABS: HEMOGLOBIN A1c 4.9 %
[2021-09-11 18:42] LABS: TOTAL 25(OH) VITAMIN D 14.1 NG/ML (30.0-100.0)
== END ==
LOC: M EKG 16:26
PROVIDERS: ATTEND Registered Nurse
DX: F43.23 Adjustment disorder with mixed anxiety and depressed mood (principal); Z51.81 Encounter for therapeutic drug level monitoring; Z13.9 Encounter for screening, unspecified; E55.9 Vitamin D deficiency, unspecified

== ENCOUNTER → 2021-11-02 | Outpatient (CLI) | payer OTHER | LOC: M RAD 11:16 → MERGE 11:30 | PROVIDERS: ATTEND Nurse Practitioner Family | DX: H92.09 Otalgia, unspecified ear (principal) ==

== ENCOUNTER → 2021-11-06 | Outpatient (CLI) | payer OTHER | LOC: M RAD 18:20 | PROVIDERS: ATTEND Nurse Practitioner Family | DX: H92.09 Otalgia, unspecified ear (principal) ==

== ENCOUNTER 2022-01-08 07:26 | Emergency (ER) | payer OTHER ==
[~2022-01-08] VITALS: Ht 167.6 cm; Wt 95.3 kg
[2022-01-08] MEDS ORDERED: METH1TAB13 PO (08:00)
[2022-01-08] MEDS ORDERED: ABIL1TAB13 PO (08:00)
[2022-01-08] MEDS ORDERED: ACET-1379 PO (08:00)
[2022-01-08] MEDS ORDERED: VENL37.598 PO (08:00)
[2022-01-08] MEDS ORDERED: ACETAMINOPHEN 500 MG TAB PO ONE (09:55)
[2022-01-08 11:44] LABS: BASO % 0.5 % (0.0-1.0); EOS # 0.1 10^3/uL (0.0-0.5); EOS % 1.5 % (0.0-3.0); HEMATOCRIT 37.7 % (36.0-47.0); HEMOGLOBIN 12.8 g/dl (12.0-15.5); LYMPH # 1.9 10^3/uL (1.5-5.0); LYMPH % 30.9 % (24.0-44.0); MEAN CORPUSCULAR HEMOGLOBIN 32.6 pg (27.0-33.0); MEAN CORPUSCULAR VOLUME 95.9 fl (80.0-96.0); MONO # 0.4 10^3/uL (0.0-0.8); NEUTROPHILS # 3.7 10^3/uL (1.5-8.5); NEUTROPHILS % 60.9 % (36.0-66.0); PLATELET COUNT, AUTOMATED 199 10^3/uL (150-450); RED BLOOD COUNT 3.93 10^6/uL (4.00-5.40); WHITE BLOOD COUNT 6.1 10^3/uL (4.0-10.0)
[2022-01-08] MEDS ORDERED: ISOVUE-370 76% 100ML VIAL As Ordered ONE (11:49)
[2022-01-08 12:06] LABS: ERYTHROCYTE SEDIMENTATION RATE 7 mm/hr (0-20)
[2022-01-08 12:26] LABS: ALBUMIN 3.5 GM/DL (3.2-5.2); ALT/SGPT 19 U/L (12-78); BILIRUBIN,DIRECT 0.1 MG/DL (0.0-0.2); BILIRUBIN,TOTAL 0.2 MG/DL (0.2-1.0); C REACTIVE PROTEIN QUANTITATIV < 0.30 MG/DL (0.00-0.30); LIPASE 169 U/L (73-393)
[2022-01-08] MEDS ORDERED: PERC5TAB12 PO ×2 (13:13→14:00)
[2022-01-08 13:31] VITALS: BP 111/59
[2022-01-08] MEDS ORDERED: AMOX875T2 PO (18:17)
== END 2022-01-08 13:35 | disposition home or self-care (01) ==
LOC: M ED 07:26
DX: D49.0 Neoplasm of unspecified behavior of digestive system (principal); J45.909 Unspecified asthma, uncomplicated; G89.29 Other chronic pain; M54.9 Dorsalgia, unspecified; Z88.1 Allergy status to other antibiotic agents; Z88.2 Allergy status to sulfonamides; Z88.4 Allergy status to anesthetic agent; Z88.8 Allergy status to other drugs, medicaments and biological substances; Z91.030 Bee allergy status; Z98.84 Bariatric surgery status; Z79.899 Other long term (current) drug therapy
CPT/HCPCS: 36415; 74177; 76705; 80047; 80076; 83690; 85025; 85652; 86140; 99284; Q9967

== ENCOUNTER → 2022-01-21 | Outpatient (CLI) | payer OTHER ==
[~2022-01-21] MED LIST changes: +ABIL1TAB13 IM; +ACET-1379 PO; +AMOX875T2 PO; +EPIN0.1510 IM; +METH1TAB13 PO; +PERC5TAB12 PO; +VENL37.598 PO; +VITA500045 PO; +XANA1TAB2 PO
== END ==
LOC: M LABSMTC 11:56
PROVIDERS: ATTEND Anesthesiology
DX: Z01.818 Encounter for other preprocedural examination (principal); Z11.52 Encounter for screening for COVID-19

== ENCOUNTER 2022-01-26 09:44 | Day surgery (SDC) | payer OTHER ==
[~2022-01-26] VITALS: Ht 170.2 cm; Wt 93.6 kg
[~2022-01-26 09:44] MED LIST changes: +PIPERACILLIN/TAZOBACTAM SOD 3.375 GM in D5W MINI-BAG PLUS 50 ML IV ONE
[2022-01-26] MEDS ORDERED: LR 1,000 ML IV SCH ×2 (10:00→15:25)
[2022-01-26] MEDS ORDERED: VITMTA PO (10:05)
[2022-01-26] MEDS ORDERED: BUPIVACAINE HCL 0.25% 30ML VIAL As Ordered ONE (13:08)
[2022-01-26] MEDS ORDERED: LIDOCAINE 2% 100MG/5ML SDV (FOR ANES.) As Ordered ONE (13:43)
[2022-01-26] MEDS ORDERED: ROCURONIUM BROMIDE 50 MG/5 ML VIAL As Ordered ONE (13:43)
[2022-01-26] MEDS ORDERED: SUGAMMADEX SODIUM 500 MG/5 ML VIAL (BRIDION) As Ordered ONE (13:43)
[2022-01-26] MEDS ORDERED: fentaNYL 250 MCG/5 ML INJECTION As Ordered ONE (13:43)
[2022-01-26] MEDS ORDERED: dexameTHASONE 4 MG/ML 1ML VIAL (J1100 PER 1MG) As Ordered ONE (13:43)
[2022-01-26] MEDS ORDERED: MIDAZOLAM INJ 2MG/2ML VIAL (J2250 PER 1MG) As Ordered ONE (13:43)
[2022-01-26] MEDS ORDERED: ONDANSETRON 4MG 2ML VIAL As Ordered ONE (13:43)
[2022-01-26] MEDS ORDERED: propofoL 200 MG/20 ML VIAL As Ordered ONE (13:43)
[2022-01-26] MEDS ORDERED: ACETAMINOPHEN 1000MG 100ML IV BTL (OFIRMEV) (J0131 PER 10MG) As Ordered ONE (13:44)
[2022-01-26] MEDS ORDERED: oxyCODONE 5MG TAB PO PRN (15:25)
[2022-01-26] MEDS ORDERED: HYDROMORPHONE HCL 0.5 MG/ 0.5 ML SYRINGE (J1170 PER 1) IV PRN (15:25)
[2022-01-26] MEDS ORDERED: fentaNYL 100 MCG/2 ML INJECTION IV PRN (15:25)
[2022-01-26] MEDS ORDERED: ONDANSETRON 4MG 2ML VIAL IV PRN (15:25)
[2022-01-26] MEDS ORDERED: HYDR-3715 PO (15:44)
[2022-01-26 16:30] VITALS: BP 130/82
== END 2022-01-26 16:36 | disposition home or self-care (01) ==
LOC: M SDC 09:44
PROVIDERS: ATTEND Surgery
DX: K38.8 Other specified diseases of appendix (principal); N83.201 Unspecified ovarian cyst, right side; J45.909 Unspecified asthma, uncomplicated; N18.9 Chronic kidney disease, unspecified; F43.10 Post-traumatic stress disorder, unspecified; F32.A Depression, unspecified; F41.9 Anxiety disorder, unspecified; G47.30 Sleep apnea, unspecified; Z79.899 Other long term (current) drug therapy; Z88.2 Allergy status to sulfonamides; Z88.8 Allergy status to other drugs, medicaments and biological substances; Z88.4 Allergy status to anesthetic agent; Z91.030 Bee allergy status; Z98.84 Bariatric surgery status
CPT/HCPCS: 44970; 88304; J0131; J1100; J2250; J2405; J2543; J3010

== ENCOUNTER → 2022-02-17 | Outpatient (CLI) | payer OTHER ==
[~2022-02-17] MED LIST changes: -PIPERACILLIN/TAZOBACTAM SOD 3.375 GM in D5W MINI-BAG PLUS 50 ML IV ONE; +VITMTA PO
== END ==
LOC: M SOG 07:57
PROVIDERS: ATTEND Orthopaedic Surgery
DX: M54.50 Low back pain, unspecified (principal)

== ENCOUNTER → 2022-04-13 | Outpatient (CLI) | payer OTHER | LOC: M PLAIMG 10:40 | PROVIDERS: ATTEND Pain Medicine Interventional Pain Medicine | DX: M51.36 Other intervertebral disc degeneration, lumbar region (principal); M54.16 Radiculopathy, lumbar region ==

== ENCOUNTER → 2022-06-24 | Outpatient (CLI) | payer OTHER | LOC: M WUC 10:42 | PROVIDERS: ATTEND Nurse Practitioner Family | DX: M25.561 Pain in right knee (principal) ==

== ENCOUNTER → 2022-07-21 | Outpatient (REF) | payer OTHER ==
[2022-07-21 13:50] LABS: BASO % 0.3 % (0.0-1.0); EOS # 0.1 10^3/uL (0.0-0.5); EOS % 1.5 % (0.0-3.0); HEMATOCRIT 40.9 % (36.0-47.0); HEMOGLOBIN 13.7 g/dl (12.0-15.5); LYMPH # 1.8 10^3/uL (1.5-5.0); LYMPH % 30.4 % (24.0-44.0); MEAN CORPUSCULAR HEMOGLOBIN 31.8 pg (27.0-33.0); MEAN CORPUSCULAR HGB CONC 33.5 g/dl (32.0-36.5); MEAN CORPUSCULAR VOLUME 94.9 fl (80.0-96.0); MONO # 0.3 10^3/uL (0.0-0.8); MONO % 5.4 % (2.0-8.0); NEUTROPHILS # 3.7 10^3/uL (1.5-8.5); NEUTROPHILS % 62.1 % (36.0-66.0); PLATELET COUNT, AUTOMATED 193 10^3/uL (150-450); RED BLOOD COUNT 4.31 10^6/uL (4.00-5.40)
[2022-07-21 14:15] LABS: ALBUMIN 3.7 G/DL (3.2-5.2); ALKALINE PHOSPHATASE 87 U/L (46-116); ALT/SGPT 18 U/L (7.0-40); AST/SGOT 17 U/L (<34); BILIRUBIN,TOTAL 0.4 MG/DL (0.3-1.2); BLOOD UREA NITROGEN 13 MG/DL (9-23); CARBON DIOXIDE LEVEL 30 MMOL/L (20-31); CHLORIDE LEVEL 105 MMOL/L (98-107); CREATININE FOR GFR 0.61 MG/DL (0.55-1.30); GLOMERULAR FILTRATION RATE > 60.0 (>58); GLUCOSE, FASTING 84 MG/DL (60-100); IRON (FE) 72 UG/DL (50-170); PERCENT SATURATION 22.6 % (13.2-45.0); POTASSIUM SERUM 4.4 MMOL/L (3.5-5.1); SODIUM LEVEL 139 MMOL/L (136-145); TOTAL IRON BINDING CAPACITY 319 UG/DL (250-425); TOTAL PROTEIN 6.5 G/DL (5.7-8.2)
[2022-07-21 14:32] LABS: HEMOGLOBIN A1c 4.8 % (4.0-6.0)
== END ==
LOC: M LAB REF 13:24
PROVIDERS: ATTEND Nurse Practitioner Family
DX: D64.9 Anemia, unspecified (principal); E16.2 Hypoglycemia, unspecified

== ENCOUNTER → 2022-11-03 | Outpatient (REF) | payer OTHER ==
[~2022-11-03] MED LIST changes: +MONT-5 PO; -SING10TA32 PO; +TOPI-254; -TOPI50TA9
== END ==
LOC: M LAB REF 09:31
PROVIDERS: ATTEND Physician Assistant
DX: R10.30 Lower abdominal pain, unspecified (principal)

== ENCOUNTER → 2023-06-01 | Outpatient (REF) | payer OTHER ==
[~2023-06-01] MED LIST changes: +CEFD1CAP9 PO; -CEFD300C41 PO; -GABA-283 PO; +GABA-284 PO; -MIRT-62; +MIRT-88; -PREG100C; +PREG100C2; -PREG50CA2; +PREG50CA3; +TOPI-21; -TOPI-254
[2023-06-01 16:04] LABS: CHOLESTEROL RISK RATIO 2.78 (<5); HDL CHOLESTEROL 61.3 MG/DL (>40); LDL CHOLESTEROL 91.7 MG/DL (<100); NON-HDL-C 109.7 MG/DL
== END ==
LOC: M LAB REF 13:38
PROVIDERS: ATTEND Nurse Practitioner Family
DX: Z13.220 Encounter for screening for lipoid disorders (principal)

== ENCOUNTER → 2023-08-15 | Outpatient (CLI) | payer OTHER | LOC: M WUC 11:48 | PROVIDERS: ATTEND Student in an Organized Health Care Education/Training Program | DX: M25.571 Pain in right ankle and joints of right foot (principal) ==

== ENCOUNTER → 2023-12-29 | Outpatient (REF) | payer OTHER ==
[2023-12-29 19:27] LABS: BASO % 0.3 % (0.0-1.0); EOS % 0.1 % (0.0-3.0); HEMATOCRIT 41.5 % (36.0-47.0); LYMPH % 12.5 % (24.0-44.0); MEAN CORPUSCULAR HEMOGLOBIN 30.1 pg (27.0-33.0); MEAN CORPUSCULAR HGB CONC 33.7 g/dl (32.0-36.5); MEAN CORPUSCULAR VOLUME 89.2 fl (80.0-96.0); MONO # 0.1 10^3/uL (0.0-0.8); MONO % 1.5 % (2.0-8.0); NEUTROPHILS # 6.6 10^3/uL (1.5-8.5); NEUTROPHILS % 85.2 % (36.0-66.0); PLATELET COUNT, AUTOMATED 199 10^3/uL (150-450); RED BLOOD COUNT 4.65 10^6/uL (4.00-5.40); WHITE BLOOD COUNT 7.8 10^3/uL (4.0-10.0)
[2023-12-29 19:46] LABS: HEMOGLOBIN A1c 5.2 % (4.0-6.0)
[2023-12-29 19:55] LABS: THYROID STIMULATING HORMONE 0.467 uIU/ML (0.55-4.78)
[2023-12-29 19:56] LABS: ALBUMIN 4.2 G/DL (3.2-5.2); ALKALINE PHOSPHATASE 85 U/L (46-116); ALT/SGPT 21 U/L (7.0-40); AST/SGOT 9 U/L (<34); BILIRUBIN,TOTAL 0.3 MG/DL (0.3-1.2); BLOOD UREA NITROGEN 14 MG/DL (9-23); CALCIUM LEVEL 9.6 MG/DL (8.5-10.1); CARBON DIOXIDE LEVEL 25 MMOL/L (20-31); CHLORIDE LEVEL 107 MMOL/L (98-107); CHOLESTEROL LEVEL 150 MG/DL (<200); CHOLESTEROL RISK RATIO 2.71 (<5); CREATININE FOR GFR 0.77 MG/DL (0.55-1.30); GLOMERULAR FILTRATION RATE > 60.0 (>58); GLUCOSE, FASTING 117 MG/DL (60-100); HDL CHOLESTEROL 55.2 MG/DL (>40); LDL CHOLESTEROL 73.6 MG/DL (<100); MAGNESIUM LEVEL 2.1 MG/DL (1.8-2.4); NON-HDL-C 94.8 MG/DL; POTASSIUM SERUM 4.1 MMOL/L (3.5-5.1); SODIUM LEVEL 140 MMOL/L (136-145); TOTAL 25(OH) VITAMIN D 25.2 NG/ML (20.0-100.0); TRIGLYCERIDES LEVEL 106 MG/DL (<150)
== END ==
LOC: M LAB REF 16:55
PROVIDERS: ATTEND Nurse Practitioner Family
DX: E66.01 Morbid (severe) obesity due to excess calories (principal); E55.9 Vitamin D deficiency, unspecified

== ENCOUNTER → 2024-02-02 | Outpatient (REF) | payer OTHER ==
[2024-02-02 13:16] LABS: THYROID STIMULATING HORMONE 1.162 uIU/ML (0.55-4.78)
[2024-02-02 13:17] LABS: FREE T4 1.08 NG/DL (0.89-1.76)
== END ==
LOC: M LAB REF 12:29
PROVIDERS: ATTEND Nurse Practitioner Family
DX: R89.1 Abnormal level of hormones in specimens from other organs, systems and tissues (principal)

== ENCOUNTER → 2024-03-05 | Outpatient (CLI) | payer OTHER ==
[~2024-03-05] MED LIST changes: +GABA-1490 PO; -GABA600T4 PO
== END ==
LOC: M WUC 13:44
PROVIDERS: ATTEND Nurse Practitioner Family
DX: B34.9 Viral infection, unspecified (principal)

== ENCOUNTER → 2024-04-20 | Outpatient (CLI) | payer OTHER ==
[~2024-04-20] MED LIST changes: +GABA-1172 PO; -GABA-282 PO
[2024-04-20 14:41] LABS: HEMATOCRIT 40.4 % (36.0-47.0); HEMOGLOBIN 13.5 g/dl (12.0-15.5); MEAN CORPUSCULAR HGB CONC 33.4 g/dl (32.0-36.5); MEAN CORPUSCULAR VOLUME 89.8 fl (80.0-96.0); PLATELET COUNT, AUTOMATED 225 10^3/uL (150-450)
[2024-04-20 14:59] LABS: ALBUMIN 3.8 G/DL (3.2-5.2); ALKALINE PHOSPHATASE 75 U/L (35-104); ALT/SGPT 21 U/L (7.0-40); AST/SGOT 13 U/L (<34); BILIRUBIN,TOTAL 0.4 MG/DL (0.3-1.2); BLOOD UREA NITROGEN 10 MG/DL (9-23); CALCIUM LEVEL 9.6 MG/DL (8.5-10.1); CARBON DIOXIDE LEVEL 27 MMOL/L (20-31); CHLORIDE LEVEL 107 MMOL/L (98-107); CREATININE FOR GFR 0.65 MG/DL (0.55-1.30); GLOMERULAR FILTRATION RATE > 60.0 (>58); GLUCOSE, FASTING 93 MG/DL (60-100); POTASSIUM SERUM 3.9 MMOL/L (3.5-5.1); SODIUM LEVEL 139 MMOL/L (136-145); TOTAL PROTEIN 6.8 G/DL (5.7-8.2)
== END ==
LOC: M LAB 13:56
PROVIDERS: ATTEND Orthopaedic Surgery
DX: Z01.812 Encounter for preprocedural laboratory examination (principal); M17.11 Unilateral primary osteoarthritis, right knee

== ENCOUNTER → 2024-04-23 | Outpatient (CLI) | payer OTHER | LOC: M RAD 08:11 | PROVIDERS: ATTEND Orthopaedic Surgery | DX: Z01.818 Encounter for other preprocedural examination (principal); M17.11 Unilateral primary osteoarthritis, right knee ==

== ENCOUNTER → 2024-05-08 | Outpatient (CLI) | payer OTHER | LOC: M RAD 11:59 | PROVIDERS: ATTEND Physician Assistant | DX: Z96.651 Presence of right artificial knee joint (principal); M25.561 Pain in right knee; Z47.1 Aftercare following joint replacement surgery ==

== ENCOUNTER 2024-09-01 14:33 | Emergency (ER) | payer OTHER ==
[~2024-09-01] VITALS: Ht 170.2 cm; Wt 126.5 kg
[2024-09-01] MEDS ORDERED: ZOLP5TAB (14:51)
[2024-09-01] MEDS ORDERED: METH-1164 (14:51)
[2024-09-01] MEDS ORDERED: GABA-1172 (14:51)
[2024-09-01] MEDS ORDERED: TIZA2TA (14:51)
[2024-09-01 15:26] LABS: BASO % 0.5 % (0.0-1.0); EOS # 0.1 10^3/uL (0.0-0.5); EOS % 1.5 % (0.0-3.0); HEMATOCRIT 37.3 % (36.0-47.0); HEMOGLOBIN 12.2 g/dl (12.0-15.5); LYMPH % 33.8 % (24.0-44.0); MEAN CORPUSCULAR HEMOGLOBIN 27.5 pg (27.0-33.0); MEAN CORPUSCULAR HGB CONC 32.7 g/dl (32.0-36.5); MONO # 0.4 10^3/uL (0.0-0.8); MONO % 6.6 % (2.0-8.0); NEUTROPHILS # 3.5 10^3/uL (1.5-8.5); NEUTROPHILS % 57.4 % (36.0-66.0); PLATELET COUNT, AUTOMATED 238 10^3/uL (150-450); RED BLOOD COUNT 4.44 10^6/uL (4.00-5.40)
[2024-09-01 16:06] LABS: HCG, SERUM QUALITATIVE NEGATIVE (NEGATIVE)
[2024-09-01 16:08] LABS: BLOOD UREA NITROGEN 12 MG/DL (9-23); CALCIUM LEVEL 8.3 MG/DL (8.5-10.1); CARBON DIOXIDE LEVEL 22 MMOL/L (20-31); CHLORIDE LEVEL 107 MMOL/L (98-107); CREATININE FOR GFR 0.59 MG/DL (0.55-1.30); GLOMERULAR FILTRATION RATE > 60.0 (>58); GLUCOSE, FASTING 98 MG/DL (60-100); SODIUM LEVEL 138 MMOL/L (136-145)
[2024-09-01] MEDS ORDERED: ISOVUE-370 76% 100ML VIAL As Ordered ONE (16:15)
[2024-09-01 17:30] VITALS: BP 122/64; TEMP 97.8; O2SAT 99
== END 2024-09-01 17:41 | disposition home or self-care (01) ==
LOC: M ED 14:33
DX: M54.2 Cervicalgia (principal); Y04.8XXA Assault by other bodily force, initial encounter; F31.9 Bipolar disorder, unspecified; F41.9 Anxiety disorder, unspecified; F32.A Depression, unspecified; E66.9 Obesity, unspecified; J45.909 Unspecified asthma, uncomplicated; G47.33 Obstructive sleep apnea (adult) (pediatric); Z79.899 Other long term (current) drug therapy; Z88.2 Allergy status to sulfonamides; Z88.8 Allergy status to other drugs, medicaments and biological substances; Z91.030 Bee allergy status
CPT/HCPCS: 36415; 70491; 80048; 84703; 85025; 99284; Q9967

== ENCOUNTER → 2024-09-15 | Outpatient (REF) | payer OTHER ==
[~2024-09-15] MED LIST changes: +GABA-1172; +METH-1164; +TIZA2TA; +ZOLP5TAB
== END ==
LOC: M LAB REF 19:52
PROVIDERS: ATTEND Physician Assistant Medical
DX: J06.9 Acute upper respiratory infection, unspecified (principal)

== ENCOUNTER → 2025-01-17 | Outpatient (CLI) | payer OTHER ==
[~2025-01-17] MED LIST changes: -AMBI10TA PO; -HYDR28CR33 TOP; +HYDR28CR52 TOP; +ZOLP-533 PO
== END ==
LOC: M WUC 14:16
PROVIDERS: ATTEND Nurse Practitioner Family
DX: M25.541 Pain in joints of right hand (principal)

== ENCOUNTER → 2025-05-01 | Outpatient (CLI) | payer OTHER ==
[~2025-05-01] MED LIST changes: +ERGO125013 PO; -IBUP1TAB6 PO; +SFHIBU600 PO; -VITA500045 PO; -ZOLP5TAB; +ZOLP5TAB9
[2025-05-01 11:02] LABS: BASO # 0.0 10^3/uL (0.0-0.2); BASO % 0.2 % (0.0-1.0); EOS # 0.1 10^3/uL (0.0-0.5); EOS % 0.4 % (0.0-3.0); LYMPH # 1.5 10^3/uL (1.5-5.0); LYMPH % 10.7 % (24.0-44.0); MONO # 1.1 10^3/uL (0.0-0.8); MONO % 8.1 % (2.0-8.0); NEUTROPHILS # 11.0 10^3/uL (1.5-8.5); NEUTROPHILS % 80.1 % (36.0-66.0); PLATELET COUNT, AUTOMATED 235 10^3/uL (150-450)
[2025-05-01 11:25] LABS: ALT/SGPT 13 U/L (7.0-40); AST/SGOT 14 U/L (<34); CALCIUM LEVEL 9.0 MG/DL (8.5-10.1); CARBON DIOXIDE LEVEL 26 MMOL/L (20-31); CHLORIDE LEVEL 102 MMOL/L (98-107); CREATININE FOR GFR 0.82 MG/DL (0.55-1.30); GLOMERULAR FILTRATION RATE > 90.0 (>58); POTASSIUM SERUM 4.0 MMOL/L (3.5-5.1); SODIUM LEVEL 138 MMOL/L (136-145)
== END ==
LOC: M LAB 09:26
PROVIDERS: ATTEND Physician Assistant
DX: R10.A2 Flank pain, left side (principal)

== ENCOUNTER → 2025-05-14 | Outpatient (CLI) | payer OTHER ==
[~2025-05-14] MED LIST changes: +HYDR-3719 PO; +TAMS1CAP17 PO; +VALA1TAB5 PO
== END ==
LOC: M RAD 13:34
PROVIDERS: ATTEND Physician Assistant
DX: Z01.818 Encounter for other preprocedural examination (principal)

== ENCOUNTER → 2025-05-22 | Outpatient (REF) | payer OTHER ==
[~2025-05-22] MED LIST changes: +ABIL1INJ2 IM; +EPIN0.3I11 INJ; +GUAN1TA PO
[2025-05-22 17:02] LABS: APPEARANCE, URINE CLOUDY (CLEAR); BACTERIA, URINE AUTO 1+ (NEGATIVE); BILIRUBIN, URINE AUTO NEGATIVE (NEGATIVE); BLOOD, URINE BLOOD 3+ (NEGATIVE); CALCIUM OXALATE CRYSTALS MODERATE; GLUCOSE, URINE (UA) AUTO NEGATIVE (NEGATIVE); KETONE, URINE AUTO NEGATIVE (NEGATIVE); LEUKOCYTE ESTERASE, URINE AUTO NEGATIVE (NEGATIVE); MUCUS, URINE SMALL (NEGATIVE); NITRITE, URINE AUTO POSITIVE (NEGATIVE); PROTEIN, URINE AUTO NEGATIVE (NEGATIVE); RBC, URINE AUTO 109 /HPF (0-3); SPECIFIC GRAVITY URINE AUTO 1.021 (1.002-1.035); SQUAMOUS EPITHELIAL CELL UR AU 6 /HPF (0-6); UROBILINOGEN, URINE AUTO 0.2 mg/dL (0.0-2.0); WBC, URINE AUTO 4 /HPF (0-3)
== END ==
LOC: M SMT 16:25
PROVIDERS: ATTEND Physician Assistant
DX: Z01.818 Encounter for other preprocedural examination (principal)

== ENCOUNTER 2025-05-24 07:39 | Emergency (ER) | payer OTHER ==
[~2025-05-24] VITALS: Ht 170.2 cm; Wt 125.5 kg
[~2025-05-24 07:39] MED LIST changes: -ABIL1INJ2 IM; -EPIN0.3I11 INJ; -GUAN1TA PO
[2025-05-24] MEDS ORDERED: EPIN0.3I11 INJ (10:22)
[2025-05-24] MEDS ORDERED: ABIL1INJ2 IM (10:23)
[2025-05-24] MEDS ORDERED: HOME MED LIST COMPLETE! XX SCH (10:25)
[2025-05-24] MEDS ORDERED: AMOX875T2 PO (10:25)
[2025-05-24] MEDS ORDERED: GUAN1TA PO (10:25)
[2025-05-24 10:53] LABS: BASO # 0.0 10^3/uL (0.0-0.2); BASO % 0.1 % (0.0-1.0); EOS # 0.0 10^3/uL (0.0-0.5); EOS % 0.0 % (0.0-3.0); LYMPH # 0.9 10^3/uL (1.5-5.0); LYMPH % 5.9 % (24.0-44.0); MONO # 0.5 10^3/uL (0.0-0.8); MONO % 3.6 % (2.0-8.0); NEUTROPHILS # 13.1 10^3/uL (1.5-8.5); NEUTROPHILS % 89.9 % (36.0-66.0); PLATELET COUNT, AUTOMATED 213 10^3/uL (150-450)
[2025-05-24 12:39] LABS: ALT/SGPT 22 U/L (7.0-40); AST/SGOT 43 U/L (<34); CALCIUM LEVEL 8.6 MG/DL (8.5-10.1); CARBON DIOXIDE LEVEL 23 MMOL/L (20-31); CHLORIDE LEVEL 104 MMOL/L (98-107); CREATININE FOR GFR 0.57 MG/DL (0.55-1.30); GLOMERULAR FILTRATION RATE > 90.0 (>58); POTASSIUM SERUM 5.7 MMOL/L (3.5-5.1); SODIUM LEVEL 139 MMOL/L (136-145)
[2025-05-24] MEDS: DALBAVANCIN 1,500 MG in D5W 250 ML IV ONE (12:45)
[2025-05-24 14:33] VITALS: BP 127/73; TEMP 98.6; O2SAT 98
== END 2025-05-24 14:39 | disposition home or self-care (01) ==
LOC: M ED 07:39
DX: L03.114 Cellulitis of left upper limb (principal); N20.0 Calculus of kidney; N39.0 Urinary tract infection, site not specified; Z86.14 Personal history of Methicillin resistant Staphylococcus aureus infection; J45.909 Unspecified asthma, uncomplicated; F31.9 Bipolar disorder, unspecified; F43.10 Post-traumatic stress disorder, unspecified; Z88.2 Allergy status to sulfonamides; Z88.8 Allergy status to other drugs, medicaments and biological substances; Z91.018 Allergy to other foods; Z91.030 Bee allergy status
CPT/HCPCS: 80053; 83605; 84132; 84145; 85025; 85652; 87040; 96365; 96366; 99284; J0875

== ENCOUNTER 2025-05-30 07:29 | Day surgery (SDC) | payer OTHER ==
[~2025-05-30] VITALS: Ht 170.2 cm; Wt 121.6 kg
[~2025-05-30 07:29] MED LIST changes: -ACET650T61 PO; +ceFAZolin SOD 2 GM IV ONCE IV ONE
[2025-05-30] MEDS ORDERED: LR 1,000 ML IV SCH (07:45)
[2025-05-30] MEDS ORDERED: ACET650T61 PO (08:04)
[2025-05-30] MEDS ORDERED: LIDOCAINE 2% 100 MG/5 ML SDV (FOR ANES.) As Ordered ONE (08:57)
[2025-05-30] MEDS ORDERED: MIDAZOLAM INJ 2 MG/2 ML VIAL As Ordered ONE (08:57)
[2025-05-30] MEDS ORDERED: ACETAMINOPHEN 1000MG/100ML IV BAG As Ordered ONE (09:10)
[2025-05-30] MEDS: ceFAZolin SOD 3 GM in DEXTROSE 5% (D5W) MINI-BAG PLU 1... IV ONE (09:10)
[2025-05-30] MEDS ORDERED: HYDR-3719 PO (09:15)
[2025-05-30 09:33] VITALS: BP 129/60; TEMP 97.3; O2SAT 98
== END 2025-05-30 10:06 | disposition home or self-care (01) ==
LOC: M SDC 07:29
PROVIDERS: ATTEND Urology
DX: N20.0 Calculus of kidney (principal); J45.909 Unspecified asthma, uncomplicated; F17.290 Nicotine dependence, other tobacco product, uncomplicated; F31.9 Bipolar disorder, unspecified; F43.10 Post-traumatic stress disorder, unspecified; Z79.899 Other long term (current) drug therapy; G89.4 Chronic pain syndrome; Z98.51 Tubal ligation status; Z90.710 Acquired absence of both cervix and uterus; Z90.49 Acquired absence of other specified parts of digestive tract; Z98.84 Bariatric surgery status; Z90.89 Acquired absence of other organs; Z88.2 Allergy status to sulfonamides; Z88.8 Allergy status to other drugs, medicaments and biological substances; Z88.4 Allergy status to anesthetic agent
CPT/HCPCS: 36415; 50590; 74018; 84132; J0131; J0688; J2250; J3010

== ENCOUNTER → 2025-05-30 | Outpatient (CLI) | payer OTHER ==
[~2025-05-30] MED LIST changes: +ABIL1INJ2 IM; +ACET650T61 PO; +EPIN0.3I11 INJ; +GUAN1TA PO
== END ==
LOC: M RAD 06:22
PROVIDERS: ATTEND Physician Assistant
DX: Z01.818 Encounter for other preprocedural examination (principal)